=== PATIENT | male | born 1950 | race Two or more races ===

== ENCOUNTER 2016-11-11 17:36 | Inpatient (IN) | payer MEDICARE ==
[~2016-11-11] VITALS: Ht 162.6 cm; Wt 65.1 kg
[2016-11-11 18:07] VITALS: BP 136/94
[2016-11-11] MEDS ORDERED: MAG HYDROX/AL HYDROX/SIMETH 30 ML ORAL.SUSP PO PRN (18:30)
[2016-11-11] MEDS ORDERED: MAGNESIUM HYDROXIDE 2,400 MG/30 ML ORAL.SUSP. PO PRN (18:30)
[2016-11-11] MEDS ORDERED: ALBUTEROL SULFATE 8GM INHALER. IH PRN (18:45)
[2016-11-11] MEDS ORDERED: IPRA12.9 IH (18:55)
[2016-11-11] MEDS ORDERED: LACT10SO PO (18:55)
[2016-11-11] MEDS ORDERED: [UNRECOGNIZED DRUG - CODE] PO (18:55)
[2016-11-11] MEDS ORDERED: FOLI1TAB16 PO (18:55)
[2016-11-11] MEDS ORDERED: THIA100T8 PO (18:55)
[2016-11-11] MEDS ORDERED: ENAL20TA4 PO (18:55)
[2016-11-11] MEDS ORDERED: AMLO10TA4 PO (18:55)
[2016-11-11] MEDS ORDERED: CARV12.5 PO (18:55)
[2016-11-11] MEDS ORDERED: MULT-503 PO (18:55)
[2016-11-11] MEDS ORDERED: PANT40TA5 PO (18:55)
[2016-11-11] MEDS ORDERED: ALBU18HF IH ×2 (18:55)
[2016-11-11] MEDS ORDERED: DIVA125C PO (19:15)
[2016-11-11] MEDS ORDERED: DIVA500T17 PO (19:15)
[2016-11-11] MEDS ORDERED: LORA2TAB PO (19:29)
[2016-11-11] MEDS ORDERED: HALO5TAB PO (19:29)
[2016-11-11] MEDS ORDERED: TRAZ-90 PO (19:29)
--- NOTE | 2016-11-11 19:44 | PDOC ---
Exam Ashvin Demential Exam: Ashvin Note: Please also refer to the separate dictated note~for this date of service dictated separately.~Patient seen individually. Discussed the patient with Nursing staff reviewed the chart.~Reviewed interim history and current functioning. Reviewed vital signs,~Labs/ Radiology~and current medications noted below. Continue current treatment with the changes noted in the dictated addendum note Assessment: Vital Signs: Vital Signs Date Time Temp Pulse Resp B/P (MAP) Pulse Ox O2 Delivery O2 Flow Rate FiO2 11/11/16 18:07 98.4 94 22 136/94 (108) 96 Current Medications: Meds: Current Medications Acetaminophen (Tylenol) 650 mg PRN Q6HRS PRN PO PAIN / TEMP; Start 11/11/16 at 18:30 Multi-Ingredient Ointment (Analgesic [place]) 1 melani PRN QID PRN TP MUSCLE PAIN; Start 11/11/16 at 18:30 Al Hydroxide/Mg Hydroxide (Mylanta Plus Xs) 15 ml PRN AFTMEALHC PRN PO DYSPEPSIA; Start 11/11/16 at 18:30 Magnesium Hydroxide (Milk Of Magnesia) 2,400 mg PRN QHS PRN PO CONSTIPATION; Start 11/11/16 at 18:30 Albuterol Sulfate (Ventolin Hfa) 2 puff PRN Q4HRS PRN IH FOR ASTHMA; Start 01/18 at 18:45; Status UNV Albuterol Sulfate (Ventolin Hfa) 2 puff Q4HRS IH ; Start 11/11/16 at 20:00; Status UNV Amlodipine Besylate (Norvasc) 10 mg DAILY PO ; Start 11/12/16 at 09:00 Carvedilol (Coreg) 12.5 mg BIDWMEALS PO ; Start 11/12/16 at 08:00 Folic Acid (Folic Acid) 1 mg DAILY PO ; Start 11/12/16 at 09:00 Ipratropium [place] (Atrovent Hfa) 2 puff QID IH ; Start 11/11/16 at 21:00; Status UNV Pantoprazole Sodium (Protonix) 40 mg BID PO ; Start 11/11/16 at 21:00 Thiamine HCl (Vitamin B-1) 100 mg DAILY PO ; Start 11/12/16 at 09:00 Lisinopril (Prinivil) 20 mg BID PO ; Start 11/11/16 at 21:00 Guaifenesin (Mucinex Er) 1,200 mg Q12HR PO ; Start 11/11/16 at 21:00 Lactulose 20 gm BID PO ; Start 11/11/16 at 21:00 Multivitamins/ Calcium (Thera-M Plus) 1 tab DAILY PO ; Start 11/12/16 at 09:00 Divalproex Sodium (Depakote Sprinkles) 500 mg BID PO ; Start 11/11/16 at 21:00; Status UNV Divalproex Sodium (Depakote Er) 1,000 mg DAILY PO ; Start 11/12/16 at 09:00; Status UNV Ipratropium [place] (Atrovent) 0.5 mg RTQID NEB ; Start 11/11/16 at 20:00; Status UNV Albuterol Sulfate (Ventolin) 2.5 mg PRN Q4HRS PRN NEB SHORTNESS OF BREATH; Start 11/11/16 at 19:45; Status UNV Active Scripts Active Reported Trazodone Hcl 100 Mg Tablet 1 Tab PO QHS Lorazepam 2 Mg Tablet 1 Tab PO PRN Q4HRS PRN Haloperidol 5 Mg Tablet 1 Tab PO PRN Q4HRS PRN Depakote Sprinkle (Divalproex Sodium) 125 Mg Cap.sprink 500 Mg PO BID Divalproex Sodium Er (Divalproex Sodium) 500 Mg Tab.er.24h 1,000 Mg PO DAILY Thiamine Hcl 100 Mg Tablet 100 Mg PO DAILY Folic Acid 1 Mg Tablet 1 Tab PO DAILY Thera-M (Multivits, W-Fe,Other Min) 1 Each Tablet 1 Each PO DAILY Pantoprazole Sodium 40 Mg Tablet.dr 1 Tab PO BID Lactulose 10 Gm/15 Ml Solution 30 Ml PO BID Atrovent Hfa (Ipratropium [place]) 12.9 Gm Hfa.aer.ad 2 Puff IH QID Guaifenesin 1,200 Mg Tab.er.12h 1,200 Mg PO Q12HR Vasotec (Enalapril Maleate) 20 Mg Tablet 10 Mg PO BID Coreg (Carvedilol) 12.5 Mg Tablet 12.5 Mg PO BIDWMEALS Norvasc (Amlodipine Besylate) 10 Mg Tablet 1 Tab PO DAILY Ventolin Hfa Inhaler (Albuterol Sulfate) 18 Gm Hfa.aer.ad 2 Puff IH PRN Q4HRS PRN Ventolin Hfa Inhaler (Albuterol Sulfate) 18 Gm Hfa.aer.ad 2 Puff IH Q4HRS CHALINO GUTIERRES MD Nov 11, 2016 19:44
[2016-11-11] MEDS ORDERED: ALBUTEROL SULFATE 2.5 MG/3 ML NEBU. NEB PRN (19:45)
[2016-11-11] MEDS ORDERED: ALBUTEROL SULFATE 8GM INHALER. IH SCH (20:00)
[2016-11-11] MEDS: LACTULOSE 20 GM/30 ML SOLUTION. PO SCH (20:51)
[2016-11-11] MEDS: PANTOPRAZOLE 40 MG TABLET. PO SCH (20:52)
[2016-11-11] MEDS: LISINOPRIL 20 MG TABLET PO SCH (20:52)
[2016-11-11] MEDS: DIVALPROEX 125 MG CAP.SPRINK PO SCH (20:52)
[2016-11-11] MEDS ORDERED: IPRATROPIUM BROMIDE 17MCG/PUFF 12.9GM INHALER. IH SCH (21:00)
[2016-11-11] MEDS: IPRATROPIUM BROMIDE 0.5 MG/2.5 ML NEBU. NEB SCH (21:01)
--- NOTE | 2016-11-11 22:21 | HP ---
ADMIT DATE: 11/11/2016 PSYCHIATRIC ADMISSION HISTORY/EVALUATION IDENTIFYING DATA: The patient is a 65-year-old male referred to us from [facility] in [place], [place] by Dr. Aleman on account of acute mental status changes. Reportedly, the patient was living at home with his , has a past history of heavy alcohol abuse, denies recent alcohol abuse. He has had a sudden onset of confusion, questionable seizures, has been impulsive. states his baseline is alert, oriented x 4. He denies any recent alcohol abuse. CHIEF COMPLAINT: "No I don't know when I came here. I live in [place]. No, I don't know the year". HISTORY OF PRESENT ILLNESS: The patient was anxious, restless, oriented to himself as I met with him in his room. He was admitting to feeling cold and I brought some extra covers and covered him. He was appreciative of this. Reportedly, the patient has a past history of alcohol abuse. He has been residing at home with his . Denies using alcohol recently. Reportedly, recently he has had change in mental status with marked confusion and has been at [facility] in [place] as a consequence of this. Workup at [facility] was negative to account for his change in mental status. No clear history of bipolar disorder, suicidal or homicidal ideation. CODE STATUS: Full. ALLERGIES: LORATADINE. PAST PSYCHIATRIC HISTORY: As above, positive for history of alcohol abuse, dependence, withdrawal. PAST MEDICAL HISTORY: Positive for hypertension, folic acid deficiency, COPD, chronic constipation, GERD, hyperlipidemia, arthritis. FAMILY HISTORY: Noncontributory. SOCIAL HISTORY: Alcohol abuse history noted above. No physical, sexual or elder abuse history is noted. He is not known to be a perpetrator. CURRENT PSYCHOTROPICS: MRAD was reviewed. The patient is on Antabuse for his alcohol abuse, Ativan, Zoloft, trazodone, Depakote. MENTAL STATUS EXAM: The patient was seen in his room the evening of 11/11/2016. He is oriented to himself, unaware of where he was, how long he had been here and knew that he resides in [place]. 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 Minimizes his alcohol abuse. Speech was somewhat slurred, abstraction fair, computation impaired, language function intact, attention span short. Mood and affect somewhat labile, anxious. LABORATORY DATA: Reviewed. REVIEW OF SYSTEMS: Ambulation impaired. No CV, , pulmonary, eye, ENT system symptoms on review. 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 Rest of diagnoses as above. PLAN: Admit to the Geropsychiatry unit at [facility]. I will see the patient daily individually from a psychiatric standpoint. Medical followup requested by Dr. Joe/Dr. Kirkland. Continue the patient on current psychotropics. Check valproic acid level, adjust psychotropics for his baseline assessment. If CT head has not been done, we will have this completed. MAN Ruth GUTIERRES MD DR: JACK/eyal JOB#: [id number] / [id number]
--- NOTE | 2016-11-12 02:26 | ACF ---
Admission Criteria Forms MENTAL STATUS CHANGE Clinical Indications for Inpatient Care (Place 'X' for any and all applicable criteria): Ongoing inpatient care may be needed for 1 or more of the following(1)(2)(3)(5)( 6): [X]I. Suspected serious etiology (eg, medical disorder, EMBROIDERER HAND event) of altered mental status [ ]II. Danger to self or others not manageable at lower level of care [ ]III. Grave disability (eg, inability to perform self care necessary at lower level of care) [ ]IV. Agitation or inappropriate behavior interfering with care for primary condition (eg, attempting to discontinue lines or drains prematurely, unable to cooperate with respiratory care) [ ]V. Delirium [A] [D][E] as described by 1 or more of the following(26): [ ]a) Delirium due to alcohol or sedative [F] withdrawal [ ]b) Delirium of uncertain etiology that has not responded to appropriate empiric treatment [ ]c) Delirium that prevents performance of a life-sustaining function (eg, feeding or hydrating oneself) [ ]. General contraindications and/or Inappropriate clinical situations for Observational Care in patients with Mental Status Change, when ANY ONE of the following is required: [ ]a) Prediction of prolongation of LOS based on ANY ONE of the following may be considered as a contraindication for observational care 2, 3, 4, 5, 6, 7, 8, 9, 10, 11 [ ]i) Age > 65 yrs. [ ]ii) Patient arriving by ambulance [ ]iii) Patient with high acuity [ ]iv) Patient requiring vital sign monitoring [ ]v) Patient on IV medication [ ]b) Systolic blood pressures greater than or equal to 180mmHg 3, 12 [ ]c) Patient with altered mental status including delirium and other alteration of consciousness, (3) [ ]d) Patient whose discharge disposition will be to a long term home or rehabilitation home should not be managed in Emergency Department Observation Unit. CMS rule requires 3 days hospital stay before such placement.3,13 [ ]e) Patient with failure to thrive due to broad array of etiologies 3,16,17 [ ]f) Inability to ambulate 3,14 Extended stay beyond goal length of stay for the primary condition may be needed until ALL of the following are present(3)(5): [ ]a) Underlying medical etiology of mental status change is absent, or has been established and adequately treated [ ]b) Danger to self or others is absent or manageable at lower level of care. [ ]c) Behavior crisis management, including physical or chemical restraints, is not required or available at lower level of car [ ]d) Substance or alcohol withdrawal is absent or manageable at lower level of care. [ ]e) Behavioral symptoms (eg, agitation, somnolence, inappropriate behavior) are absent, or are manageable at lower level of care. The original [email or web address] content created by [email or web address] has been revised. The portions of the content which have been revised are identified through the use of italic text or in bold, and [facility] has neither reviewed nor approved the modified material. All other unmodified content is copyright [email or web address]. Please see references footnoted in the original [email or web address] edition 2016 Admission Criteria Met?: Yes ROBINSON ZHU Nov 12, 2016 02:26
[2016-11-12 05:42] VITALS: BP 123/76
[2016-11-12] MEDS: IPRATROPIUM BROMIDE 0.5 MG/2.5 ML NEBU. NEB SCH ×4 (05:49→21:12)
[2016-11-12 07:26] LABS: BASO % 0 % (0-3); EOS # 0.5 x10^3/uL (0.0-0.7); EOS % 4 % (0-3); HEMATOCRIT 40.6 % (39.0-53.0); HEMOGLOBIN 13.7 g/dL (13.0-17.5); LYMPH # 1.7 x10^3/uL (1.0-4.8); LYMPH % 13 % (24-48); MEAN CORPUSCULAR HEMOGLOBIN 31 pg (25-35); MEAN CORPUSCULAR HGB CONC 34 g/dL (31-37); MEAN CORPUSCULAR VOLUME 90 fL (79-100); MONO # 1.2 x10^3/uL (0.0-1.1); MONO % 9 % (0-9); NEUT # 9.7 x10^3uL (1.8-7.7); NEUT % 74 % (31-73); PLATELET COUNT 186 x10^3/uL (140-400); RED BLOOD COUNT 4.49 x10^6/uL (4.30-5.70); RED CELL DISTRIBUTION WIDTH 15.1 % (11.5-14.5)
[2016-11-12 07:42] LABS: ALBUMIN 3.2 g/dL (3.4-5.0); ALBUMIN/GLOBULIN RATIO 0.9 (1.0-1.7); ALK PHOS 46 U/L (46-116); ALT (SGPT) 15 U/L (16-63); ANION GAP 5 (6-14); AST (SGOT) 10 U/L (15-37); BLOOD UREA NITROGEN 13 mg/dL (8-26); BUN/CREATININE RATIO 14 (6-20); CALCIUM 9.6 mg/dL (8.5-10.1); CARBON DIOXIDE 30 mmol/L (21-32); CHLORIDE 110 mmol/L (98-107); CREATININE 0.9 mg/dL (0.7-1.3); GFR 84.7; GLUCOSE 100 mg/dL (70-99); MAGNESIUM 2.2 mg/dL (1.8-2.4); POTASSIUM 3.4 mmol/L (3.5-5.1); SODIUM 145 mmol/L (136-145); TOTAL BILIRUBIN 0.3 mg/dL (0.2-1.0); TOTAL PROTEIN 6.7 g/dL (6.4-8.2)
[2016-11-12 07:50] LABS: VAL ACID 91 mcg/mL (50-100)
[2016-11-12] MEDS: LACTULOSE 20 GM/30 ML SOLUTION. PO SCH ×2 (08:00→19:39)
[2016-11-12] MEDS: PANTOPRAZOLE 40 MG TABLET. PO SCH ×2 (08:00→19:40)
[2016-11-12] MEDS: DIVALPROEX 125 MG CAP.SPRINK PO SCH ×2 (08:01→19:40)
[2016-11-12] MEDS: LISINOPRIL 20 MG TABLET PO SCH ×2 (08:01→19:40)
[2016-11-12] MEDS: FOLIC ACID 1 MG TABLET PO SCH (08:05)
[2016-11-12] MEDS: CARVEDILOL 12.5 MG TABLET PO SCH ×2 (08:05→17:00)
[2016-11-12] MEDS: DIVALPROEX ER 500 MG TAB.ER.24H PO SCH (08:05)
[2016-11-12] MEDS: THIAMINE 100 MG TABLET. PO SCH (08:05)
[2016-11-12] MEDS: amLODIPine BESYLATE 10 MG TABLET PO SCH (08:06)
[2016-11-12] MEDS: MULTIVITAMIN with MINERAL TABLET. PO SCH (08:10)
--- NOTE | 2016-11-12 13:51 | HP ---
ADMIT DATE: 11/11/2016 MEDICAL HISTORY AND PHYSICAL REASON FOR ADMISSION TO [facility]: This is a 65-year-old male with longstanding alcoholism, who resides at [facility] with his in [place], [place]. We were called from [facility] in [place] for admission because of sudden onset of confusion, questionable seizures, impulsive. states his baseline is alert and oriented x 4. PAST MEDICAL HISTORY: Often on issues with alcohol, major depressive disorder, hypertension, hyperlipidemia, GERD, arthritis, anxiety. PAST SURGICAL HISTORY: Appendectomy, tonsillectomy. ALLERGIES: LORATADINE. MEDICATIONS: Were reviewed. He had some changes in his Depakote, which had been increased. SOCIAL HISTORY: Marital status: He is , his is a drug and alcohol counselor. He has a longstanding problem with alcoholism. The patient did not really state when his last drink was . SMOKING HISTORY: He states I smoke an occasional cigarette. REVIEW OF SYSTEMS: The patient just would not cooperate and he was very restless. HOME MEDICATIONS: Chart reviewed from [facility] from admission on 10/29/2016 for altered mental status. The patient was seen. PHYSICAL EXAMINATION: VITAL SIGNS: His blood pressure is 123/76, respirations 20, pulse 96, temperature 98, pulse ox 96% on room air. Height 74 inches, weight 140.38 pounds, unknown. GENERAL: Debilitated male, looks older than his stated age. His general appearance is unkept. He is restless. He is constantly moving. HEENT: His hearing is normal. His eyes were clear. His nose was patent. His throat was clear. His tongue was midline without fasciculations. NECK: Supple, without adenopathy. LUNGS: Clear to auscultation. CARDIOVASCULAR: Regular rhythm and rate. ABDOMEN: Soft, nontender. EXTREMITIES: Without edema. Reflexes 2+/4. MUSCULOSKELETAL: The patient had a hard time doing bixpiy-ar-kehl. He would put one finger to my finger and touched his nose with the other finger and could not follow directions. He could do rapid alternating movement. Reflexes actually in the lower extremity, probably 3+/4. Other cranial nerves intact. There is no asterixis and no tremor. LABORATORY DATA: White blood cell count slightly elevated at 13, otherwise negative. Chemistry: Potassium is 3.4, chloride 110. Liver function tests are actually little bit low albumin is 3.2. Valproic acid is 91. CT of the head from [facility] in [place] shows no evidence of mass effect, age-related volume loss, chronic microvascular ischemic disease, although other labs are pending. ASSESSMENT: 1. A 65-year-old with confusion, agitation, and restlessness 2. Longstanding alcoholism. 3. Major depressive disorder. 4. Hypertension. 5. White matter disease. 6. Age-related volume loss. 7. Gastroesophageal reflux disease. 8. Weight loss. PLAN: Follow along with alcohol withdrawal. Observe for alcohol withdrawal and await his other studies. AGUSTIN LEO DO DR: MATI/eyal JOB#: [id number] / [id number]
[2016-11-12 14:11] LABS: THYROID STIM HORMONE (TSH) 1.735 uIU/mL (0.358-3.740)
[2016-11-12 16:18] VITALS: BP 147/79
[2016-11-12 17:09] LABS: T3 TOTAL 119 ng/dL (71-180)
--- NOTE | 2016-11-12 19:53 | PDOC ---
Exam Ashvin Demential Exam: Ashvin Note: Please also refer to the separate dictated note~for this date of service dictated separately.~Patient seen individually. Discussed the patient with Nursing staff reviewed the chart.~Reviewed interim history and current functioning. Reviewed vital signs,~Labs/ Radiology~and current medications noted below. Continue current treatment with the changes noted in the dictated addendum note Assessment: Vital Signs: Vital Signs Date Time Temp Pulse Resp B/P (MAP) Pulse Ox O2 Delivery O2 Flow Rate FiO2 11/12/16 19:40 94 147/79 11/12/16 16:31 95 Room Air 11/12/16 16:18 98.2 20 I&O Intake and Output 11/12/16 07:00 Intake Total 0 ml Balance 0 ml Intake Oral 0 ml Labs: Laboratory Tests Test 11/12/16 06:40 White Blood Count 13.0 x10^3/uL (4.0-11.0) H Red Blood Count 4.49 x10^6/uL (4.30-5.70) Hemoglobin 13.7 g/dL (13.0-17.5) Hematocrit 40.6 % (39.0-53.0) Mean Corpuscular Volume 90 fL (79-100) Mean Corpuscular Hemoglobin 31 pg (25-35) Mean Corpuscular Hemoglobin Concent 34 g/dL (31-37) Red Cell Distribution Width 15.1 % (11.5-14.5) H Platelet Count 186 x10^3/uL (140-400) Neutrophils (%) (Auto) 74 % (31-73) H Lymphocytes (%) (Auto) 13 % (24-48) L Monocytes (%) (Auto) 9 % (0-9) Eosinophils (%) (Auto) 4 % (0-3) H Basophils (%) (Auto) 0 % (0-3) Neutrophils # (Auto) 9.7 x10^3uL (1.8-7.7) H Lymphocytes # (Auto) 1.7 x10^3/uL (1.0-4.8) Monocytes # (Auto) 1.2 x10^3/uL (0.0-1.1) H Eosinophils # (Auto) 0.5 x10^3/uL (0.0-0.7) Basophils # (Auto) 0.0 x10^3/uL (0.0-0.2) Sodium Level 145 mmol/L (136-145) Potassium Level 3.4 mmol/L (3.5-5.1) L Chloride Level 110 mmol/L (98-107) H Carbon Dioxide Level 30 mmol/L (21-32) Anion Gap 5 (6-14) L Blood Urea Nitrogen 13 mg/dL (8-26) Creatinine 0.9 mg/dL (0.7-1.3) Estimated GFR (Cockcroft-Gault) 84.7 BUN/Creatinine Ratio 14 (6-20) Glucose Level 100 mg/dL (70-99) H Calcium Level 9.6 mg/dL (8.5-10.1) Magnesium Level 2.2 mg/dL (1.8-2.4) Iron Level 24 ug/dL (65-175) L Total Iron Binding Capacity 209 ug/dL (250-450) L Iron Saturation 11 % (15-34) L Total Bilirubin 0.3 mg/dL (0.2-1.0) Aspartate Amino Transferase (AST) 10 U/L (15-37) L Alanine Aminotransferase (ALT) 15 U/L (16-63) L Alkaline Phosphatase 46 U/L (46-116) Total Protein 6.7 g/dL (6.4-8.2) Albumin 3.2 g/dL (3.4-5.0) L Albumin/Globulin Ratio 0.9 (1.0-1.7) L Triglycerides Level 107 mg/dL (0-150) Cholesterol Level 152 mg/dL (0-200) LDL Cholesterol, Calculated 92 mg/dL (0-100) VLDL Cholesterol, Calculated 21 mg/dL (0-40) Non-HDL Cholesterol Calculated 113 mg/dL (0-129) HDL Cholesterol 39 mg/dL (40-60) L Cholesterol/HDL Ratio 3.0 Vitamin B12 Level 494 pg/mL (247-911) 25-Hydroxy Vitamin D Total Pending Thyroid Stimulating Hormone (TSH) 1.735 uIU/mL (0.358-3.740) Thyroxine (T4) 7.0 ug/dL (4.5-12.0) Total Triiodothyronine (TT3) 119 ng/dL (71-180) Valproic Acid Level 91 mcg/mL (50-100) Valproic Acid Last Dose Date 11/11/2016 Valproic Acid Last Dose Time 2100 RPR Titer Additional Testing Pending Current Medications: Meds: Current Medications Acetaminophen (Tylenol) 650 mg PRN Q6HRS PRN PO PAIN / TEMP; Start 11/11/16 at 18:30 Multi-Ingredient Ointment (Analgesic [place]) 1 melani PRN QID PRN TP MUSCLE PAIN; Start 11/11/16 at 18:30 Al Hydroxide/Mg Hydroxide (Mylanta Plus Xs) 15 ml PRN AFTMEALHC PRN PO DYSPEPSIA; Start 11/11/16 at 18:30 Magnesium Hydroxide (Milk Of Magnesia) 2,400 mg PRN QHS PRN PO CONSTIPATION; Start 11/11/16 at 18:30 Albuterol Sulfate (Ventolin Hfa) 2 puff PRN Q4HRS PRN IH FOR ASTHMA; Start 01/18 at 18:45; Stop 11/11/16 at 19:52; Status DC Albuterol Sulfate (Ventolin Hfa) 2 puff Q4HRS IH ; Start 11/11/16 at 20:00; Stop 11/11/16 at 20:00; Status DC Amlodipine Besylate (Norvasc) 10 mg DAILY PO Last administered on 11/12/16 08: 06; Start 11/12/16 at 09:00 Carvedilol (Coreg) 12.5 mg BIDWMEALS PO Last administered on 11/12/16 17:00; Start 11/12/16 at 08:00 Folic Acid (Folic Acid) 1 mg DAILY PO Last administered on 11/12/16 08:05; Start 11/12/16 at 09:00 Ipratropium [place] (Atrovent Hfa) 2 puff QID IH ; Start 11/11/16 at 21:00; Stop 11/11/16 at 21:00; Status DC Pantoprazole Sodium (Protonix) 40 mg BID PO Last administered on 11/12/16 19: 40; Start 11/11/16 at 21:00 Thiamine HCl (Vitamin B-1) 100 mg DAILY PO Last administered on 11/12/16 08:05 ; Start 11/12/16 at 09:00 Lisinopril (Prinivil) 20 mg BID PO Last administered on 11/12/16 19:40; Start 11/11/16 at 21:00 Guaifenesin (Mucinex Er) 1,200 mg Q12HR PO Last administered on 11/12/16 19:39 ; Start 11/11/16 at 21:00 Lactulose 20 gm BID PO Last administered on 11/12/16 19:39; Start 11/11/16 at 21:00 Multivitamins/ Calcium (Thera-M Plus) 1 tab DAILY PO Last administered on 08:10; Start 11/12/16 at 09:00 Divalproex Sodium (Depakote Sprinkles) 500 mg BID PO Last administered on 19:40; Start 11/11/16 at 21:00 Divalproex Sodium (Depakote Er) 1,000 mg DAILY PO Last administered on 08:05; Start 11/12/16 at 09:00 Ipratropium [place] (Atrovent) 0.5 mg RTQID NEB Last administered on 11/12/16 16:31; Start 11/11/16 at 20:00 Albuterol Sulfate (Ventolin) 2.5 mg PRN Q4HRS PRN NEB SHORTNESS OF BREATH; Start 11/11/16 at 19:45 Quetiapine Fumarate (SEROquel) 12.5 mg DAILY PO ; Start 11/13/16 at 09:00 Active Scripts Active Reported Trazodone Hcl 100 Mg Tablet 1 Tab PO QHS Lorazepam 2 Mg Tablet 1 Tab PO PRN Q4HRS PRN Haloperidol 5 Mg Tablet 1 Tab PO PRN Q4HRS PRN Depakote Sprinkle (Divalproex Sodium) 125 Mg Cap.sprink 500 Mg PO BID Divalproex Sodium Er (Divalproex Sodium) 500 Mg Tab.er.24h 1,000 Mg PO DAILY Thiamine Hcl 100 Mg Tablet 100 Mg PO DAILY Folic Acid 1 Mg Tablet 1 Tab PO DAILY Thera-M (Multivits, W,Other Min) 1 Each Tablet 1 Each PO DAILY Pantoprazole Sodium 40 Mg Tablet.dr 1 Tab PO BID Lactulose 10 Gm/15 Ml Solution 30 Ml PO BID Atrovent Hfa (Ipratropium [place]) 12.9 Gm Hfa.aer.ad 2 Puff IH QID Guaifenesin 1,200 Mg Tab.er.12h 1,200 Mg PO Q12HR Vasotec (Enalapril Maleate) 20 Mg Tablet 10 Mg PO BID Coreg (Carvedilol) 12.5 Mg Tablet 12.5 Mg PO BIDWMEALS Norvasc (Amlodipine Besylate) 10 Mg Tablet 1 Tab PO DAILY Ventolin Hfa Inhaler (Albuterol Sulfate) 18 Gm Hfa.aer.ad 2 Puff IH PRN Q4HRS PRN Ventolin Hfa Inhaler (Albuterol Sulfate) 18 Gm Hfa.aer.ad 2 Puff IH Q4HRS Diagnosis: Problems: (1) Anxiety disorder (2) Dementia associated with alcoholism with behavioral disturbance (3) Dementia, vascular, with delirium (4) Dementia, vascular, with delusions (5) Dementia, vascular, with depression (6) Impulse control disorder CHALINO GUTIERRES MD Nov 12, 2016 19:53
[2016-11-13 03:21] LABS: HEMOGLOBIN A1C 4.6 % (4.8-5.6)
[2016-11-13 04:41] LABS: BILIRUBIN,URINE NEG (NEG); CLARITY,URINE CLEAR; COLOR,URINE YELLOW; GLUCOSE,URINE NEG (NEG); UROBILINOGEN,URINE 0.2 mg/dL (0.2 mg/dL)
[2016-11-13 04:42] LABS: BACTERIA,URINE FEW /HPF (0-FEW); NITRITE,URINE NEG (NEG); SQUAMOUS EPITHELIAL CELL,UR OCC /LPF; WBC,URINE 0 /HPF (0-4)
[2016-11-13 05:34] VITALS: BP 156/97
[2016-11-13] MEDS: IPRATROPIUM BROMIDE 0.5 MG/2.5 ML NEBU. NEB SCH ×4 (05:36→20:34)
[2016-11-13] MEDS: LACTULOSE 20 GM/30 ML SOLUTION. PO SCH ×2 (07:40→20:05)
[2016-11-13] MEDS: LISINOPRIL 20 MG TABLET PO SCH ×2 (07:41→20:06)
[2016-11-13] MEDS: DIVALPROEX 125 MG CAP.SPRINK PO SCH ×2 (07:41→20:06)
[2016-11-13] MEDS: PANTOPRAZOLE 40 MG TABLET. PO SCH ×2 (07:41→20:07)
[2016-11-13] MEDS: MULTIVITAMIN with MINERAL TABLET. PO SCH (07:41)
[2016-11-13] MEDS: DIVALPROEX ER 500 MG TAB.ER.24H PO SCH (07:42)
[2016-11-13] MEDS: THIAMINE 100 MG TABLET. PO SCH (07:42)
[2016-11-13] MEDS: CARVEDILOL 12.5 MG TABLET PO SCH ×2 (07:42→17:00)
[2016-11-13] MEDS: amLODIPine BESYLATE 10 MG TABLET PO SCH (07:42)
[2016-11-13] MEDS: FOLIC ACID 1 MG TABLET PO SCH (07:42)
[2016-11-13] MEDS: QUEtiapine 25 MG TABLET. PO SCH (07:59)
[2016-11-13 16:23] VITALS: BP 110/75
[2016-11-13] MEDS: ACETAMINOPHEN 325 MG TABLET PO PRN (17:24)
[2016-11-13] MEDS ORDERED: POTASSIUM CHLORIDE 20 MEQ TABLET.ER. PO ONE (20:00)
[2016-11-13] MEDS: traZODone 100 MG TABLET. PO SCH (20:05)
--- NOTE | 2016-11-13 20:21 | PN ---
DATE: 11/12/2016 PSYCHIATRIC PROGRESS NOTE This late entry of date of service 11/12/2016 covers elements not covered in my initial note of 11/12/2016. SUBJECTIVE: The patient seen individually evening of 11/12/2016 for this assessment. He has been ambulating better, seems little less confused than the night previously when I saw him. I met with him in the evening of 11/12/2016. He slid down the wall, dropping himself to the floor, no injuries noted. His has been calling very frequently per nursing staff to check on his progress and has called the nursing staff about 5 times during the day on 11/12/2016, per nursing report. She seems quite concerned about his progress, somehow which is understandable. The patient was, however, cursing at his on the telephone. Given the fact that he has had a significant change in his mental status, we will have a Neurology consult with Dr. Sánchez as well. Valproic acid level is 91. REVIEW OF SYSTEMS: Ambulation impaired. No CV, , pulmonary, eye system symptoms on review. MENTAL STATUS EXAM: Oriented to himself and situation. Speech has some latency, somewhat paranoid, suspicious, anxious. Insight limited, judgment marginal. Short term memory is impaired. No active suicidal or homicidal ideation. LABORATORY DATA: Reviewed. IMPRESSION: Unchanged from initial note. PLAN: Continue Depakote at current dosage, start Seroquel 12.5 mg at 9 a.m. starting 11/13/2016 as a mood stabilizer or atypical antipsychotic. Adjust further as clinically indicated. CHALINO GUTIERRES MD DR: JACK/eyal JOB#: [id number] / [id number]
[2016-11-13] MEDS ORDERED: traZODone 100 MG TABLET. PO SCH (21:00)
[2016-11-13] MEDS ORDERED: MIRTAZAPINE 7.5 MG TABLET. PO SCH (21:00)
--- NOTE | 2016-11-13 23:09 | PDOC ---
Exam Ashvin Demential Exam: Ashvin Note: Please also refer to the separate dictated note~for this date of service dictated separately.~Patient seen individually. Discussed the patient with Nursing staff reviewed the chart.~Reviewed interim history and current functioning. Reviewed vital signs,~Labs/ Radiology~and current medications noted below. Continue current treatment with the changes noted in the dictated addendum note Assessment: Vital Signs: Vital Signs Date Time Temp Pulse Resp B/P (MAP) Pulse Ox O2 Delivery O2 Flow Rate FiO2 11/13/16 20:36 98 Room Air 11/13/16 20:06 93 110/75 11/13/16 16:23 98.1 18 I&O Intake and Output 11/13/16 07:00 Intake Total 960 ml Balance 960 ml Intake Oral 960 ml # Bowel Movements 1 Labs: Laboratory Tests Test 11/13/16 03:55 Urine Collection Type Clean catch Urine Color Yellow Urine Clarity Clear Urine pH 6.5 Urine Specific [place] 1.020 Urine Protein Neg (NEG-TRACE) Urine Glucose (UA) Neg mg/dL (NEG) Urine Ketones (Stick) 15 mg/dL (NEG) Urine Blood Trace (NEG) Urine Nitrite Neg (NEG) Urine Bilirubin Neg (NEG) Urine Urobilinogen Dipstick 0.2 mg/dL (0.2 mg/dL) Urine Leukocyte Esterase Neg (NEG) Urine RBC 1-2 /HPF (0-2) Urine WBC 0 /HPF (0-4) Urine Squamous Epithelial Cells Occ /LPF Urine Bacteria Few /HPF (0-FEW) Urine Mucus Slight /LPF Current Medications: Meds: Current Medications Acetaminophen (Tylenol) 650 mg PRN Q6HRS PRN PO PAIN / TEMP Last administered on 11/13/16t 17:24; Start 11/11/16 at 18:30 Multi-Ingredient Ointment (Analgesic [place]) 1 melani PRN QID PRN TP MUSCLE PAIN; Start 11/11/16 at 18:30 Al Hydroxide/Mg Hydroxide (Mylanta Plus Xs) 15 ml PRN AFTMEALHC PRN PO DYSPEPSIA; Start 11/11/16 at 18:30 Magnesium Hydroxide (Milk Of Magnesia) 2,400 mg PRN QHS PRN PO CONSTIPATION; Start 11/11/16 at 18:30 Albuterol Sulfate (Ventolin Hfa) 2 puff PRN Q4HRS PRN IH FOR ASTHMA; Start 01/18 at 18:45; Stop 11/11/16 at 19:52; Status DC Albuterol Sulfate (Ventolin Hfa) 2 puff Q4HRS IH ; Start 11/11/16 at 20:00; Stop 11/11/16 at 20:00; Status DC Amlodipine Besylate (Norvasc) 10 mg DAILY PO Last administered on 11/13/16 07: 42; Start 11/12/16 at 09:00 Carvedilol (Coreg) 12.5 mg BIDWMEALS PO Last administered on 11/13/16 17:00; Start 11/12/16 at 08:00 Folic Acid (Folic Acid) 1 mg DAILY PO Last administered on 11/13/16 07:42; Start 11/12/16 at 09:00 Ipratropium [place] (Atrovent Hfa) 2 puff QID IH ; Start 11/11/16 at 21:00; Stop 11/11/16 at 21:00; Status DC Pantoprazole Sodium (Protonix) 40 mg BID PO Last administered on 11/13/16 20: 07; Start 11/11/16 at 21:00 Thiamine HCl (Vitamin B-1) 100 mg DAILY PO Last administered on 11/13/16 07:42 ; Start 11/12/16 at 09:00 Lisinopril (Prinivil) 20 mg BID PO Last administered on 11/13/16 20:06; Start 11/11/16 at 21:00 Guaifenesin (Mucinex Er) 1,200 mg Q12HR PO Last administered on 11/13/16 20:07 ; Start 11/11/16 at 21:00 Lactulose 20 gm BID PO Last administered on 11/13/16 20:05; Start 11/11/16 at 21:00 Multivitamins/ Calcium (Thera-M Plus) 1 tab DAILY PO Last administered on 07:41; Start 11/12/16 at 09:00 Divalproex Sodium (Depakote Sprinkles) 500 mg BID PO Last administered on 20:06; Start 11/11/16 at 21:00 Divalproex Sodium (Depakote Er) 1,000 mg DAILY PO Last administered on 07:42; Start 11/12/16 at 09:00 Ipratropium [place] (Atrovent) 0.5 mg RTQID NEB Last administered on 11/13/16 20:34; Start 11/11/16 at 20:00 Albuterol Sulfate (Ventolin) 2.5 mg PRN Q4HRS PRN NEB SHORTNESS OF BREATH; Start 11/11/16 at 19:45 Quetiapine Fumarate (SEROquel) 12.5 mg DAILY PO Last administered on 11/13/16 07:59; Start 11/13/16 at 09:00 Trazodone HCl (Desyrel) 100 mg QHS PO ; Start 11/13/16 at 21:00; Stop 11/13/16 at 21:00; Status DC Olanzapine (ZyPREXA ZYDIS) 2.5 mg PRN Q2HR PRN PO PSYCHOSIS Last administered on 11/13/16 20:05; Start 11/13/16 at 12:45 Mirtazapine (Remeron) 7.5 mg QHS PO ; Start 11/13/16 at 21:00; Stop 11/13/16 at 21:00; Status DC Trazodone HCl (Desyrel) 500 mg QHS PO Last administered on 11/13/16 20:05; Start 11/13/16 at 21:00 Potassium Chloride (Klor-Con) 40 meq 1X ONCE PO Last administered on 20:06; Start 11/13/16 at 20:00; Stop 11/13/16 at 20:01; Status DC Active Scripts Active Reported Trazodone Hcl 100 Mg Tablet 1 Tab PO QHS Depakote Sprinkle (Divalproex Sodium) 125 Mg Cap.sprink 500 Mg PO BID Divalproex Sodium Er (Divalproex Sodium) 500 Mg Tab.er.24h 1,000 Mg PO DAILY Thiamine Hcl 100 Mg Tablet 100 Mg PO DAILY Folic Acid 1 Mg Tablet 1 Tab PO DAILY Thera-M (Multivits, W-Fe,Other Min) 1 Each Tablet 1 Each PO DAILY Pantoprazole Sodium 40 Mg Tablet.dr 1 Tab PO BID Lactulose 10 Gm/15 Ml Solution 30 Ml PO BID Atrovent Hfa (Ipratropium [place]) 12.9 Gm Hfa.aer.ad 2 Puff IH QID Guaifenesin 1,200 Mg Tab.er.12h 1,200 Mg PO Q12HR Vasotec (Enalapril Maleate) 20 Mg Tablet 10 Mg PO BID Coreg (Carvedilol) 12.5 Mg Tablet 12.5 Mg PO BIDWMEALS Norvasc (Amlodipine Besylate) 10 Mg Tablet 1 Tab PO DAILY Ventolin Hfa Inhaler (Albuterol Sulfate) 18 Gm Hfa.aer.ad 2 Puff IH PRN Q4HRS PRN Ventolin Hfa Inhaler (Albuterol Sulfate) 18 Gm Hfa.aer.ad 2 Puff IH Q4HRS Diagnosis: Problems: (1) Anxiety disorder (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
[2016-11-14] MEDS: IPRATROPIUM BROMIDE 0.5 MG/2.5 ML NEBU. NEB SCH ×4 (05:19→20:48)
[2016-11-14 06:13] VITALS: BP 105/70
[2016-11-14] MEDS: DIVALPROEX ER 500 MG TAB.ER.24H PO SCH (07:36)
[2016-11-14] MEDS: LACTULOSE 20 GM/30 ML SOLUTION. PO SCH ×2 (07:36→20:09)
[2016-11-14] MEDS: THIAMINE 100 MG TABLET. PO SCH (07:37)
[2016-11-14] MEDS: FOLIC ACID 1 MG TABLET PO SCH (07:41)
[2016-11-14] MEDS: MULTIVITAMIN with MINERAL TABLET. PO SCH (07:41)
[2016-11-14] MEDS: PANTOPRAZOLE 40 MG TABLET. PO SCH ×2 (07:45→20:10)
[2016-11-14] MEDS: QUEtiapine 25 MG TABLET. PO SCH (07:45)
[2016-11-14] MEDS: DIVALPROEX 125 MG CAP.SPRINK PO SCH ×2 (07:46→20:10)
[2016-11-14] MEDS: amLODIPine BESYLATE 10 MG TABLET PO SCH (07:47)
[2016-11-14] MEDS: LISINOPRIL 20 MG TABLET PO SCH ×2 (07:47→20:09)
[2016-11-14] MEDS: CARVEDILOL 12.5 MG TABLET PO SCH ×2 (07:47→17:00)
[2016-11-14 07:51] LABS: BASO % 0 % (0-3); EOS # 0.3 x10^3/uL (0.0-0.7); EOS % 2 % (0-3); HEMATOCRIT 41.1 % (39.0-53.0); HEMOGLOBIN 13.7 g/dL (13.0-17.5); LYMPH # 1.7 x10^3/uL (1.0-4.8); LYMPH % 14 % (24-48); MEAN CORPUSCULAR HEMOGLOBIN 30 pg (25-35); MEAN CORPUSCULAR HGB CONC 33 g/dL (31-37); MEAN CORPUSCULAR VOLUME 91 fL (79-100); MONO # 1.4 x10^3/uL (0.0-1.1); MONO % 11 % (0-9); NEUT # 9.1 x10^3uL (1.8-7.7); NEUT % 72 % (31-73); PLATELET COUNT 194 x10^3/uL (140-400); RED BLOOD COUNT 4.51 x10^6/uL (4.30-5.70); WHITE BLOOD COUNT 12.5 x10^3/uL (4.0-11.0)
[2016-11-14 08:12] LABS: ALBUMIN 3.1 g/dL (3.4-5.0); ALBUMIN/GLOBULIN RATIO 0.9 (1.0-1.7); CALCIUM 9.4 mg/dL (8.5-10.1); POTASSIUM 3.9 mmol/L (3.5-5.1); TOTAL BILIRUBIN 0.4 mg/dL (0.2-1.0); TOTAL PROTEIN 6.5 g/dL (6.4-8.2)
[2016-11-14 17:24] VITALS: BP 115/76
[2016-11-14] MEDS: traZODone 100 MG TABLET. PO SCH (20:10)
--- NOTE | 2016-11-14 20:18 | PDOC ---
Exam Ashvin Demential Exam: Ashvin Note: Please also refer to the separate dictated note~for this date of service dictated separately.~Patient seen individually. Discussed the patient with Nursing staff reviewed the chart.~Reviewed interim history and current functioning. Reviewed vital signs,~Labs/ Radiology~and current medications noted below. Continue current treatment with the changes noted in the dictated addendum note Assessment: Vital Signs: Vital Signs Date Time Temp Pulse Resp B/P (MAP) Pulse Ox O2 Delivery O2 Flow Rate FiO2 11/14/16 20:09 108 115/76 11/14/16 17:24 98.9 18 98 11/14/16 16:15 Room Air I&O Intake and Output 11/14/16 07:00 Intake Total 1000 ml Balance 1000 ml Intake Oral 1000 ml Labs: Laboratory Tests Test 11/14/16 07:06 White Blood Count 12.5 x10^3/uL (4.0-11.0) H Red Blood Count 4.51 x10^6/uL (4.30-5.70) Hemoglobin 13.7 g/dL (13.0-17.5) Hematocrit 41.1 % (39.0-53.0) Mean Corpuscular Volume 91 fL (79-100) Mean Corpuscular Hemoglobin 30 pg (25-35) Mean Corpuscular Hemoglobin Concent 33 g/dL (31-37) Red Cell Distribution Width 15.0 % (11.5-14.5) H Platelet Count 194 x10^3/uL (140-400) Neutrophils (%) (Auto) 72 % (31-73) Lymphocytes (%) (Auto) 14 % (24-48) L Monocytes (%) (Auto) 11 % (0-9) H Eosinophils (%) (Auto) 2 % (0-3) Basophils (%) (Auto) 0 % (0-3) Neutrophils # (Auto) 9.1 x10^3uL (1.8-7.7) H Lymphocytes # (Auto) 1.7 x10^3/uL (1.0-4.8) Monocytes # (Auto) 1.4 x10^3/uL (0.0-1.1) H Eosinophils # (Auto) 0.3 x10^3/uL (0.0-0.7) Basophils # (Auto) 0.0 x10^3/uL (0.0-0.2) Sodium Level 147 mmol/L (136-145) H Potassium Level 3.9 mmol/L (3.5-5.1) Chloride Level 111 mmol/L (98-107) H Carbon Dioxide Level 27 mmol/L (21-32) Anion Gap 9 (6-14) Blood Urea Nitrogen 20 mg/dL (8-26) Creatinine 1.0 mg/dL (0.7-1.3) Estimated GFR (Cockcroft-Gault) 75.0 BUN/Creatinine Ratio 20 (6-20) Glucose Level 112 mg/dL (70-99) H Calcium Level 9.4 mg/dL (8.5-10.1) Total Bilirubin 0.4 mg/dL (0.2-1.0) Aspartate Amino Transferase (AST) 10 U/L (15-37) L Alanine Aminotransferase (ALT) 13 U/L (16-63) L Alkaline Phosphatase 46 U/L (46-116) Total Protein 6.5 g/dL (6.4-8.2) Albumin 3.1 g/dL (3.4-5.0) L Albumin/Globulin Ratio 0.9 (1.0-1.7) L Current Medications: Meds: Current Medications Acetaminophen (Tylenol) 650 mg PRN Q6HRS PRN PO PAIN / TEMP Last administered on 11/13/16t 17:24; Start 11/11/16 at 18:30 Multi-Ingredient Ointment (Analgesic [place]) 1 melani PRN QID PRN TP MUSCLE PAIN; Start 11/11/16 at 18:30 Al Hydroxide/Mg Hydroxide (Mylanta Plus Xs) 15 ml PRN AFTMEALHC PRN PO DYSPEPSIA; Start 11/11/16 at 18:30 Magnesium Hydroxide (Milk Of Magnesia) 2,400 mg PRN QHS PRN PO CONSTIPATION; Start 11/11/16 at 18:30 Albuterol Sulfate (Ventolin Hfa) 2 puff PRN Q4HRS PRN IH FOR ASTHMA; Start 01/18 at 18:45; Stop 11/11/16 at 19:52; Status DC Albuterol Sulfate (Ventolin Hfa) 2 puff Q4HRS IH ; Start 11/11/16 at 20:00; Stop 11/11/16 at 20:00; Status DC Amlodipine Besylate (Norvasc) 10 mg DAILY PO Last administered on 11/13/16 07: 42; Start 11/12/16 at 09:00 Carvedilol (Coreg) 12.5 mg BIDWMEALS PO Last administered on 11/14/16 17:00; Start 11/12/16 at 08:00 Folic Acid (Folic Acid) 1 mg DAILY PO Last administered on 11/14/16 07:41; Start 11/12/16 at 09:00 Ipratropium [place] (Atrovent Hfa) 2 puff QID IH ; Start 11/11/16 at 21:00; Stop 11/11/16 at 21:00; Status DC Pantoprazole Sodium (Protonix) 40 mg BID PO Last administered on 11/14/16 20: 10; Start 11/11/16 at 21:00 Thiamine HCl (Vitamin B-1) 100 mg DAILY PO Last administered on 11/14/16 07:37 ; Start 11/12/16 at 09:00 Lisinopril (Prinivil) 20 mg BID PO Last administered on 11/14/16 20:09; Start 11/11/16 at 21:00 Guaifenesin (Mucinex Er) 1,200 mg Q12HR PO Last administered on 11/14/16 20:10 ; Start 11/11/16 at 21:00 Lactulose 20 gm BID PO Last administered on 11/14/16 20:09; Start 11/11/16 at 21:00 Multivitamins/ Calcium (Thera-M Plus) 1 tab DAILY PO Last administered on 07:41; Start 11/12/16 at 09:00 Divalproex Sodium (Depakote Sprinkles) 500 mg BID PO Last administered on 20:10; Start 11/11/16 at 21:00 Divalproex Sodium (Depakote Er) 1,000 mg DAILY PO Last administered on 07:36; Start 11/12/16 at 09:00 Ipratropium [place] (Atrovent) 0.5 mg RTQID NEB Last administered on 11/14/16 16:14; Start 11/11/16 at 20:00 Albuterol Sulfate (Ventolin) 2.5 mg PRN Q4HRS PRN NEB SHORTNESS OF BREATH; Start 11/11/16 at 19:45 Quetiapine Fumarate (SEROquel) 12.5 mg DAILY PO Last administered on 11/14/16 07:45; Start 11/13/16 at 09:00 Trazodone HCl (Desyrel) 100 mg QHS PO ; Start 11/13/16 at 21:00; Stop 11/13/16 at 21:00; Status DC Olanzapine (ZyPREXA ZYDIS) 2.5 mg PRN Q2HR PRN PO PSYCHOSIS Last administered on 11/14/16 20:11; Start 11/13/16 at 12:45 Mirtazapine (Remeron) 7.5 mg QHS PO ; Start 11/13/16 at 21:00; Stop 11/13/16 at 21:00; Status DC Trazodone HCl (Desyrel) 500 mg QHS PO Last administered on 11/14/16 20:10; Start 11/13/16 at 21:00 Potassium Chloride (Klor-Con) 40 meq 1X ONCE PO Last administered on 20:06; Start 11/13/16 at 20:00; Stop 11/13/16 at 20:01; Status DC Active Scripts Active Reported Trazodone Hcl 100 Mg Tablet 1 Tab PO QHS Depakote Sprinkle (Divalproex Sodium) 125 Mg Cap.sprink 500 Mg PO BID Divalproex Sodium Er (Divalproex Sodium) 500 Mg Tab.er.24h 1,000 Mg PO DAILY Thiamine Hcl 100 Mg Tablet 100 Mg PO DAILY Folic Acid 1 Mg Tablet 1 Tab PO DAILY Thera-M (Multivits,Th W-Fe,Other Min) 1 Each Tablet 1 Each PO DAILY Pantoprazole Sodium 40 Mg Tablet.dr 1 Tab PO BID Lactulose 10 Gm/15 Ml Solution 30 Ml PO BID Atrovent Hfa (Ipratropium [place]) 12.9 Gm Hfa.aer.ad 2 Puff IH QID Guaifenesin 1,200 Mg Tab.er.12h 1,200 Mg PO Q12HR Vasotec (Enalapril Maleate) 20 Mg Tablet 10 Mg PO BID Coreg (Carvedilol) 12.5 Mg Tablet 12.5 Mg PO BIDWMEALS Norvasc (Amlodipine Besylate) 10 Mg Tablet 1 Tab PO DAILY Ventolin Hfa Inhaler (Albuterol Sulfate) 18 Gm Hfa.aer.ad 2 Puff IH PRN Q4HRS PRN Ventolin Hfa Inhaler (Albuterol Sulfate) 18 Gm Hfa.aer.ad 2 Puff IH Q4HRS Diagnosis: Problems: (1) Anxiety disorder (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
--- NOTE | 2016-11-14 20:23 | PN ---
DATE: 11/13/2016 This is a late entry for 11/13/2016 and covers elements not covered in my initial note. I met with the patient evening of 11/13/2016. The patient slept just a quarter hour last night. He apparently did not receive the trazodone 100 mg p.o. at bedtime, august repeat x 1 that I had ordered and per nursing report has called and is quite insistent the patient return back to the 500 mg trazodone at bedtime that he was taking prior to admission. We will go ahead and do this and for now, I will discontinue the Lexapro 5 mg a day I had considered starting as an antidepressant and antianxiety agent and the Remeron 7.5 mg at bedtime and low dose trazodone that had I considered for the insomnia, anxiety, mood symptoms. From nursing descriptions, is quite clear that this patient's outpatient physician definitely wants the patient back on the full dosage of trazodone and I had considered the risk/benefit ratio of adding the Remeron and Lexapro to that and decided that ratio favored not adding those at this time if he were to go with higher dosage of trazodone. He is ambulating a little better, still somewhat irritable, labile in his mood. No CV, , pulmonary, eye system symptoms on review. MENTAL STATUS EXAM: Oriented to himself and situation. Speech has some latency, coherent. Abstraction fair, computation impaired, language function intact, attention span short. Mood and affect, somewhat anxious, labile, paranoid, tearful at times. He is a sliding himself down the wall, but no injuries noted. This is something he had done previously as well. We have added Zyprexa p.r.n. for this. IMPRESSION: Unchanged from initial note. PLAN: Make the changes noted above. I had a lengthy discussion and review of his psychotropics as part of this complicated scenario. CHALINO GUTIERRES MD DR: JACK/eyal JOB#: [id number] / [id number]
[2016-11-15] MEDS: IPRATROPIUM BROMIDE 0.5 MG/2.5 ML NEBU. NEB SCH ×4 (06:03→20:56)
[2016-11-15 06:07] VITALS: BP 107/71
[2016-11-15] MEDS: DIVALPROEX ER 500 MG TAB.ER.24H PO SCH (08:32)
[2016-11-15] MEDS: PANTOPRAZOLE 40 MG TABLET. PO SCH ×2 (08:32→19:58)
[2016-11-15] MEDS: MULTIVITAMIN with MINERAL TABLET. PO SCH (08:33)
[2016-11-15] MEDS: FOLIC ACID 1 MG TABLET PO SCH (08:33)
[2016-11-15] MEDS: THIAMINE 100 MG TABLET. PO SCH (08:33)
[2016-11-15] MEDS: LISINOPRIL 20 MG TABLET PO SCH ×2 (08:33→19:58)
[2016-11-15] MEDS: QUEtiapine 25 MG TABLET. PO SCH (08:33)
[2016-11-15] MEDS: amLODIPine BESYLATE 10 MG TABLET PO SCH (08:34)
[2016-11-15] MEDS: DIVALPROEX 125 MG CAP.SPRINK PO SCH ×2 (08:34→19:57)
[2016-11-15] MEDS: CARVEDILOL 12.5 MG TABLET PO SCH ×2 (08:34→16:19)
[2016-11-15] MEDS: LACTULOSE 20 GM/30 ML SOLUTION. PO SCH ×2 (08:36→19:58)
[2016-11-15 16:46] VITALS: BP 104/64
[2016-11-15] MEDS: traZODone 100 MG TABLET. PO SCH (19:59)
--- NOTE | 2016-11-15 20:15 | PDOC ---
Exam Ashvin Demential Exam: Ashvin Note: Please also refer to the separate dictated note~for this date of service dictated separately.~Patient seen individually. Discussed the patient with Nursing staff reviewed the chart.~Reviewed interim history and current functioning. Reviewed vital signs,~Labs/ Radiology~and current medications noted below. Continue current treatment with the changes noted in the dictated addendum note Assessment: Vital Signs: Vital Signs Date Time Temp Pulse Resp B/P (MAP) Pulse Ox O2 Delivery O2 Flow Rate FiO2 11/15/16 19:58 87 104/64 11/15/16 16:46 98.7 20 92 11/15/16 16:35 Room Air I&O Intake and Output 11/15/16 07:00 Intake Total 1120 ml Balance 1120 ml Intake Oral 1120 ml Current Medications: Meds: Current Medications Acetaminophen (Tylenol) 650 mg PRN Q6HRS PRN PO PAIN / TEMP Last administered on 11/13/16 17:24; Start 11/11/16 at 18:30 Multi-Ingredient Ointment (Analgesic [place]) 1 melani PRN QID PRN TP MUSCLE PAIN; Start 11/11/16 at 18:30 Al Hydroxide/Mg Hydroxide (Mylanta Plus Xs) 15 ml PRN AFTMEALHC PRN PO DYSPEPSIA; Start 11/11/16 at 18:30 Magnesium Hydroxide (Milk Of Magnesia) 2,400 mg PRN QHS PRN PO CONSTIPATION; Start 11/11/16 at 18:30 Albuterol Sulfate (Ventolin Hfa) 2 puff PRN Q4HRS PRN IH FOR ASTHMA; Start 01/18 at 18:45; Stop 11/11/16 at 19:52; Status DC Albuterol Sulfate (Ventolin Hfa) 2 puff Q4HRS IH ; Start 11/11/16 at 20:00; Stop 11/11/16 at 20:00; Status DC Amlodipine Besylate (Norvasc) 10 mg DAILY PO Last administered on 11/15/16 08: 34; Start 11/12/16 at 09:00 Carvedilol (Coreg) 12.5 mg BIDWMEALS PO Last administered on 11/15/16 16:19; Start 11/12/16 at 08:00 Folic Acid (Folic Acid) 1 mg DAILY PO Last administered on 11/15/16 08:33; Start 11/12/16 at 09:00 Ipratropium [place] (Atrovent Hfa) 2 puff QID IH ; Start 11/11/16 at 21:00; Stop 11/11/16 at 21:00; Status DC Pantoprazole Sodium (Protonix) 40 mg BID PO Last administered on 11/15/16 19: 58; Start 11/11/16 at 21:00 Thiamine HCl (Vitamin B-1) 100 mg DAILY PO Last administered on 11/15/16 08:33 ; Start 11/12/16 at 09:00 Lisinopril (Prinivil) 20 mg BID PO Last administered on 11/15/16 19:58; Start 11/11/16 at 21:00 Guaifenesin (Mucinex Er) 1,200 mg Q12HR PO Last administered on 11/15/16 20:01 ; Start 11/11/16 at 21:00 Lactulose 20 gm BID PO Last administered on 11/15/16 19:58; Start 11/11/16 at 21:00 Multivitamins/ Calcium (Thera-M Plus) 1 tab DAILY PO Last administered on 08:33; Start 11/12/16 at 09:00 Divalproex Sodium (Depakote Sprinkles) 500 mg BID PO Last administered on 19:57; Start 11/11/16 at 21:00 Divalproex Sodium (Depakote Er) 1,000 mg DAILY PO Last administered on 08:32; Start 11/12/16 at 09:00 Ipratropium [place] (Atrovent) 0.5 mg RTQID NEB Last administered on 11/15/16 16:35; Start 11/11/16 at 20:00 Albuterol Sulfate (Ventolin) 2.5 mg PRN Q4HRS PRN NEB SHORTNESS OF BREATH; Start 11/11/16 at 19:45 Quetiapine Fumarate (SEROquel) 12.5 mg DAILY PO Last administered on 11/15/16 08:33; Start 11/13/16 at 09:00 Trazodone HCl (Desyrel) 100 mg QHS PO ; Start 11/13/16 at 21:00; Stop 11/13/16 at 21:00; Status DC Olanzapine (ZyPREXA ZYDIS) 2.5 mg PRN Q2HR PRN PO PSYCHOSIS Last administered on 11/14/16 20:11; Start 11/13/16 at 12:45 Mirtazapine (Remeron) 7.5 mg QHS PO ; Start 11/13/16 at 21:00; Stop 11/13/16 at 21:00; Status DC Trazodone HCl (Desyrel) 500 mg QHS PO Last administered on 11/15/16 19:59; Start 11/13/16 at 21:00 Potassium Chloride (Klor-Con) 40 meq 1X ONCE PO Last administered on 20:06; Start 11/13/16 at 20:00; Stop 11/13/16 at 20:01; Status DC Active Scripts Active Reported Trazodone Hcl 100 Mg Tablet 1 Tab PO QHS Depakote Sprinkle (Divalproex Sodium) 125 Mg Cap.sprink 500 Mg PO BID Divalproex Sodium Er (Divalproex Sodium) 500 Mg Tab.er.24h 1,000 Mg PO DAILY Thiamine Hcl 100 Mg Tablet 100 Mg PO DAILY Folic Acid 1 Mg Tablet 1 Tab PO DAILY Thera-M (Multivits,Th W-Fe,Other Min) 1 Each Tablet 1 Each PO DAILY Pantoprazole Sodium 40 Mg Tablet.dr 1 Tab PO BID Lactulose 10 Gm/15 Ml Solution 30 Ml PO BID Atrovent Hfa (Ipratropium [place]) 12.9 Gm Hfa.aer.ad 2 Puff IH QID Guaifenesin 1,200 Mg Tab.er.12h 1,200 Mg PO Q12HR Vasotec (Enalapril Maleate) 20 Mg Tablet 10 Mg PO BID Coreg (Carvedilol) 12.5 Mg Tablet 12.5 Mg PO BIDWMEALS Norvasc (Amlodipine Besylate) 10 Mg Tablet 1 Tab PO DAILY Ventolin Hfa Inhaler (Albuterol Sulfate) 18 Gm Hfa.aer.ad 2 Puff IH PRN Q4HRS PRN Ventolin Hfa Inhaler (Albuterol Sulfate) 18 Gm Hfa.aer.ad 2 Puff IH Q4HRS Diagnosis: Problems: (1) Anxiety disorder (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
[2016-11-16 05:25] VITALS: BP 106/70
[2016-11-16] MEDS: IPRATROPIUM BROMIDE 0.5 MG/2.5 ML NEBU. NEB SCH ×4 (06:04→20:30)
--- NOTE | 2016-11-16 08:40 | PN ---
DATE: 11/14/2016 SUBJECTIVE: This late entry 11/14/2016 covers elements not covered in my initial note of 11/14/2016. Met with the patient evening of 11/14/2016. He received the 500 mg of trazodone previous evening, which is what he was taking at home and his are insistent he get back on that dosage. He has been somewhat sedated during the day, perhaps partly as a consequence of that but he slept 6 hours previous night. He again himself down the wall to the floor, slept from 11:00 a.m. to 2:00 p.m., told staff that he has drug paraphernalia at home. His denies this. REVIEW OF SYSTEMS: Ambulation impaired. No CV, , pulmonary, eye, ENT system symptoms on review. MENTAL STATUS EXAM: Oriented to himself and situation. Speech has some latency, coherent. Abstraction fair, computation impaired, language function intact, attention span short. Mood and affect still somewhat anxious, labile, but showing improvement. LABORATORY DATA: Reviewed. IMPRESSION: Unchanged from initial note. PLAN: Continue current psychotropics. Valproic acid level is 91. MAN Ruth GUTIERRES MD DR: JACK/eyal JOB#: [id number] / [id number]
[2016-11-16] MEDS: DIVALPROEX 125 MG CAP.SPRINK PO SCH ×2 (09:55→20:04)
[2016-11-16] MEDS: LACTULOSE 20 GM/30 ML SOLUTION. PO SCH ×2 (09:56→19:52)
[2016-11-16] MEDS: FOLIC ACID 1 MG TABLET PO SCH (09:56)
[2016-11-16] MEDS: LISINOPRIL 20 MG TABLET PO SCH ×2 (09:56→21:45)
[2016-11-16] MEDS: amLODIPine BESYLATE 10 MG TABLET PO SCH (09:57)
[2016-11-16] MEDS: PANTOPRAZOLE 40 MG TABLET. PO SCH ×2 (09:57→19:54)
[2016-11-16] MEDS: CARVEDILOL 12.5 MG TABLET PO SCH ×2 (09:57→16:00)
[2016-11-16] MEDS: DIVALPROEX ER 500 MG TAB.ER.24H PO SCH (09:58)
[2016-11-16] MEDS: MULTIVITAMIN with MINERAL TABLET. PO SCH (09:58)
[2016-11-16] MEDS: THIAMINE 100 MG TABLET. PO SCH (10:00)
[2016-11-16] MEDS: QUEtiapine 25 MG TABLET. PO SCH (10:01)
[2016-11-16] MEDS: ACETAMINOPHEN 325 MG TABLET PO PRN (12:59)
[2016-11-16] MEDS: METHYL SALICYLATE/MENTHOL TOPICAL OINTMENT 29GM TUBE. TP PRN (12:59)
[2016-11-16 16:20] VITALS: BP 101/73
--- NOTE | 2016-11-16 19:49 | PDOC ---
Exam Ashvin Demential Exam: Ashvin Note: Please also refer to the separate dictated note~for this date of service dictated separately.~Patient seen individually. Discussed the patient with Nursing staff reviewed the chart.~Reviewed interim history and current functioning. Reviewed vital signs,~Labs/ Radiology~and current medications noted below. Continue current treatment with the changes noted in the dictated addendum note Assessment: Vital Signs: Vital Signs Date Time Temp Pulse Resp B/P (MAP) Pulse Ox O2 Delivery O2 Flow Rate FiO2 11/16/16 16:20 98.3 80 16 101/73 (82) 96 11/16/16 15:34 Room Air I&O Intake and Output 11/16/16 07:00 Intake Total 780 ml Balance 780 ml Intake Oral 780 ml Current Medications: Meds: Current Medications Acetaminophen (Tylenol) 650 mg PRN Q6HRS PRN PO PAIN / TEMP Last administered on 11/16/16 12:59; Start 11/11/16 at 18:30 Multi-Ingredient Ointment (Analgesic [place]) 1 melani PRN QID PRN TP MUSCLE PAIN Last administered on 11/16/16 12:59; Start 11/11/16 at 18:30 Al Hydroxide/Mg Hydroxide (Mylanta Plus Xs) 15 ml PRN AFTMEALHC PRN PO DYSPEPSIA; Start 11/11/16 at 18:30 Magnesium Hydroxide (Milk Of Magnesia) 2,400 mg PRN QHS PRN PO CONSTIPATION; Start 11/11/16 at 18:30 Albuterol Sulfate (Ventolin Hfa) 2 puff PRN Q4HRS PRN IH FOR ASTHMA; Start 01/18 at 18:45; Stop 11/11/16 at 19:52; Status DC Albuterol Sulfate (Ventolin Hfa) 2 puff Q4HRS IH ; Start 11/11/16 at 20:00; Stop 11/11/16 at 20:00; Status DC Amlodipine Besylate (Norvasc) 10 mg DAILY PO Last administered on 11/16/16 09: 57; Start 11/12/16 at 09:00 Carvedilol (Coreg) 12.5 mg BIDWMEALS PO Last administered on 11/16/16 16:00; Start 11/12/16 at 08:00 Folic Acid (Folic Acid) 1 mg DAILY PO Last administered on 11/16/16 09:56; Start 11/12/16 at 09:00 Ipratropium [place] (Atrovent Hfa) 2 puff QID IH ; Start 11/11/16 at 21:00; Stop 11/11/16 at 21:00; Status DC Pantoprazole Sodium (Protonix) 40 mg BID PO Last administered on 11/16/16 09: 57; Start 11/11/16 at 21:00 Thiamine HCl (Vitamin B-1) 100 mg DAILY PO Last administered on 11/16/16 10:00 ; Start 11/12/16 at 09:00 Lisinopril (Prinivil) 20 mg BID PO Last administered on 11/16/16 09:56; Start 11/11/16 at 21:00 Guaifenesin (Mucinex Er) 1,200 mg Q12HR PO Last administered on 11/16/16 10:00 ; Start 11/11/16 at 21:00 Lactulose 20 gm BID PO Last administered on 11/16/16 09:56; Start 11/11/16 at 21:00 Multivitamins/ Calcium (Thera-M Plus) 1 tab DAILY PO Last administered on 09:58; Start 11/12/16 at 09:00 Divalproex Sodium (Depakote Sprinkles) 500 mg BID PO Last administered on 09:55; Start 11/11/16 at 21:00; Stop 11/16/16 at 18:12; Status DC Divalproex Sodium (Depakote Er) 1,000 mg DAILY PO Last administered on 09:58; Start 11/12/16 at 09:00; Stop 11/16/16 at 18:12; Status DC Ipratropium [place] (Atrovent) 0.5 mg RTQID NEB Last administered on 11/16/16 15:33; Start 11/11/16 at 20:00 Albuterol Sulfate (Ventolin) 2.5 mg PRN Q4HRS PRN NEB SHORTNESS OF BREATH; Start 11/11/16 at 19:45 Quetiapine Fumarate (SEROquel) 12.5 mg DAILY PO Last administered on 11/16/16 10:01; Start 11/13/16 at 09:00 Trazodone HCl (Desyrel) 100 mg QHS PO ; Start 11/13/16 at 21:00; Stop 11/13/16 at 21:00; Status DC Olanzapine (ZyPREXA ZYDIS) 2.5 mg PRN Q2HR PRN PO PSYCHOSIS Last administered on 11/14/16 20:11; Start 11/13/16 at 12:45 Mirtazapine (Remeron) 7.5 mg QHS PO ; Start 11/13/16 at 21:00; Stop 11/13/16 at 21:00; Status DC Trazodone HCl (Desyrel) 500 mg QHS PO Last administered on 11/15/16 19:59; Start 11/13/16 at 21:00 Potassium Chloride (Klor-Con) 40 meq 1X ONCE PO Last administered on 20:06; Start 11/13/16 at 20:00; Stop 11/13/16 at 20:01; Status DC Divalproex Sodium (Depakote Er) 2,000 mg QHS PO ; Start 11/17/16 at 21:00 Active Scripts Active Reported Trazodone Hcl 100 Mg Tablet 1 Tab PO QHS Depakote Sprinkle (Divalproex Sodium) 125 Mg Cap.sprink 500 Mg PO BID Divalproex Sodium Er (Divalproex Sodium) 500 Mg Tab.er.24h 1,000 Mg PO DAILY Thiamine Hcl 100 Mg Tablet 100 Mg PO DAILY Folic Acid 1 Mg Tablet 1 Tab PO DAILY Thera-M (Multivits,Th W-Fe,Other Min) 1 Each Tablet 1 Each PO DAILY Pantoprazole Sodium 40 Mg Tablet.dr 1 Tab PO BID Lactulose 10 Gm/15 Ml Solution 30 Ml PO BID Atrovent Hfa (Ipratropium [place]) 12.9 Gm Hfa.aer.ad 2 Puff IH QID Guaifenesin 1,200 Mg Tab.er.12h 1,200 Mg PO Q12HR Vasotec (Enalapril Maleate) 20 Mg Tablet 10 Mg PO BID Coreg (Carvedilol) 12.5 Mg Tablet 12.5 Mg PO BIDWMEALS Norvasc (Amlodipine Besylate) 10 Mg Tablet 1 Tab PO DAILY Ventolin Hfa Inhaler (Albuterol Sulfate) 18 Gm Hfa.aer.ad 2 Puff IH PRN Q4HRS PRN Ventolin Hfa Inhaler (Albuterol Sulfate) 18 Gm Hfa.aer.ad 2 Puff IH Q4HRS Diagnosis: Problems: (1) Anxiety disorder (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
[2016-11-16] MEDS: traZODone 100 MG TABLET. PO SCH (19:54)
[2016-11-16] MEDS ORDERED: DIVALPROEX ER 500 MG TAB.ER.24H PO SCH (21:00)
[2016-11-16] MEDS ORDERED: DIVALPROEX 125 MG CAP.SPRINK PO SCH (21:45)
--- NOTE | 2016-11-16 23:29 | CONS ---
DATE OF CONSULTATION: 11/11/2016 NEUROLOGY CONSULTATION REASON FOR CONSULTATION: Rule out seizures. HISTORY OF PRESENT ILLNESS: This is a 65-year-old male who has been in his usual state of health until recently when he started experiencing a sudden onset of confusion, disorientation and questionable seizure. The patient has had a history of a seizure disorder; however, reviewing report from __ revealed extensive neurological workup including a head CAT scan, brain MRI, which revealed no significant abnormalities. The patient was diagnosed to have an EEG, but no report was found about the test. Currently, the patient is sitting in his bed. He speaks slowly and rarely. He barely follows commands. Appears to be drowsy and not willing to provide any information. According to his , the patient used to be alert and oriented x 4, and she stated her was found to have episode of being unresponsive and confused. PAST MEDICAL HISTORY: Significant for chronic alcoholism, but the patient denies recent alcohol use, history of major depressions, hypertension, hyperlipidemia, arthritis, anxiety and GERD. SOCIAL HISTORY: Positive for appendectomy and tonsillectomy. CURRENT MEDICATIONS: Trazodone, olanzapine 2.5 mg q. 2 hours p.r.n. for psychosis, Seroquel 12.5 mg daily, valproic acid 1000 mg daily, multivitamins, thiamine, folic acid 1 mg daily, amlodipine 10 mg daily, carvedilol 12.5 mg twice daily, Depakote 500 mg b.i.d., lactulose, Mucinex expectorant q. 12 hours, lisinopril 20 mg b.i.d., Protonix 40 mg b.i.d., Atrovent nebulizer q.i.d., Ventolin inhalers p.r.n. ALLERGIES: LORATADINE. REVIEW OF SYSTEMS: A 10-point review of system was performed as stated in the history of present illness. SOCIAL HISTORY: The patient lives with his at home. He has a long history of alcohol drinking, but he has not drunk for a while. PHYSICAL EXAMINATION: GENERAL: Well-developed, well-nourished white male, not in acute distress. He weighs 143.6 pounds, height 64 inches. VITAL SIGNS: Blood pressure 136/94, respiratory rate 22, pulse is 94 and regular, temperature is 98.4, oxygen saturation 95% on room air. HEENT: Normocephalic, atraumatic, otherwise unremarkable. NECK: Supple. Negative for carotid bruit, lymphadenopathy or thyromegaly. LUNGS: Clear to A and P. CARDIOVASCULAR: Regular rhythm, normal S1, S2. There is no S3, S4 or murmur. ABDOMEN: Soft. Bowel sounds positive. EXTREMITIES: Negative for cyanosis, clubbing or edema. NEUROLOGIC: Mental status: The patient is alert, but does not follow commands, appears to be tired. Further evaluation is limited at this time. Cranial nerves: The pupils are reactive to light and accommodation. The extraocular movements are intact. There is no nystagmus. There is no facial motor or sensory deficit. Hearing appears to be intact. The palate is elevated symmetrically. Sternocleidomastoid muscles are powerful bilaterally. The patient shrugs his shoulders symmetrically, protrudes his tongue in the midline without fasciculation or atrophy. Motor examination: No focal muscle bulk was seen. The tone is normal. The strength is 4/5 throughout. Sensory examination revealed normal pinprick, light touch, vibratory and position senses. Deep tendon reflexes were symmetric and hypoactive without pathology responses. Gait: The patient is unsteady and he uses a wheelchair for ambulation. LABORATORY DATA: CBC and chemistry are pending. IMPRESSION: 1. Chronic alcoholism. The patient has not been drinking for a while. 2. Sudden onset of recurrent confusion, rule out seizure versus psychosis. 3. Multiple medical problems include hypertension, hyperlipidemia, gastroesophageal reflux disease, depression, anxiety, impulse disorder, hypertension, hyperlipidemia, arthritis. RECOMMENDATIONS: 1. To obtain an EEG. 2. Continue with current psychiatric and medical care. M Osvaldo MADISON MD DR: CECILE/eyal JOB#: [id number] / [id number]
--- NOTE | 2016-11-16 23:52 | PN ---
DATE: 11/12/2016 SUBJECTIVE: The patient denies any new medical or neurological complaints. It was reported that the patient sled down to the wall while talking to his on telephone, was confused and disoriented. The patient did not recall the event; however, he denies any injuries or loss of consciousness. OBJECTIVE: GENERAL: Well-developed, well-nourished white male, not in acute distress. VITAL SIGNS: Blood pressure 147/79, respiratory rate 20, pulse is 94, temperature 98.2, oxygen saturation 98% on room air. HEENT: Normocephalic, atraumatic, otherwise unremarkable. NECK: Supple. Negative for carotid bruit, lymphadenopathy or thyromegaly. LUNGS: Clear to A and P. CARDIOVASCULAR: Regular rate and rhythm, normal S1, S2. ABDOMEN: Soft. Bowel sounds positive. EXTREMITIES: Negative for cyanosis, clubbing or pitting edema. NEUROLOGIC: The patient is alert to himself. He follows 1-step commands. His speech is slow, but he really answers in few sentences. Judgment, abstract thinking and memory is difficult to evaluate at this time. CRANIAL NERVES: Pupils are equal and reactive to light and accommodation. Extraocular movements are intact. There is no nystagmus. There is no facial motor or sensory deficit. Hearing appeared to be intact bilaterally. Motor exam show focal muscle bulk was seen. The tone is normal. The strength is 4/5 throughout. Sensory: Revealed normal pinprick, light touch senses throughout. Deep tendon reflexes are symmetric and hypoactive with absent Achilles responses. Gait: The patient has unsteady stance. LABORATORY DATA: CBC revealed white blood cells of 13,000, hemoglobin 13.7, hematocrit 48.6, platelet count 186,000. Chemistry revealed iron of 24, iron saturation is low at 11. Liver enzymes are low. Lipid profile is normal. Vitamin B12 is in normal range and vitamin D is normal at 44.4 and thyroid profile is normal. Valproic acid on 11/12/2016 was 91. IMPRESSION: 1. History of seizure disorder, rule out recurrent seizure. 2. Longstanding history of alcoholism, but is out of for the window for alcohol withdrawal seizure. 3. Multiple medical problems include hypertension, hyperlipidemia, GERD, arthritis. 4. Multiple psychiatric problems including depression, anxiety, paranoid. RECOMMENDATIONS: 1. Await for an EEG. 2. Continue with current care initiated by Dr. Jacqueline Joe and Dr. Amador. M Osvaldo MADISON MD DR: CECILE/eyal JOB#: [id number] / [id number]
--- NOTE | 2016-11-17 03:26 | PN ---
DATE: 11/15/2016 PSYCHIATRIC PROGRESS NOTE This is a late entry of 11/15/2016 covers elements not covered in my initial note of 11/15/2016. I met with the patient on the evening of 11/15/2016 for this evaluation. Per nursing report, the patient did do "not so great" the previous evening. During the day on 11/15/2016, he was aware of his date of , thought the year was 2014, knew who the President was, still talking about cocaine, heroin and alcohol and that he has paraphernalia at home. His has called 4 times per nursing staff and several other times to check with nursing staff. Staff are trying to coordinate level. EEG is unremarkable and I discussed with Dr. Sánchez, Neurology. REVIEW OF SYSTEMS: Ambulation impaired. No CV, , pulmonary, eye, ENT systems symptoms on review. MENTAL STATUS EXAM: Oriented to himself and situation. Speech has some latency, coherent. Abstraction fair, computation impaired, language function intact, attention span short. Mood and affect still somewhat labile at times, but improved. LABORATORY DATA: Reviewed. IMPRESSION: Unchanged from initial note. PLAN: Continue current psychotropics. Valproic acid level is 91, therapeutic, . Reviewed drug interactions risk/benefit ratio, favors no change for now. MAN Ruth GUTIERRES MD DR: JACK/eyal JOB#: [id number] / [id number]
[2016-11-17] MEDS: IPRATROPIUM BROMIDE 0.5 MG/2.5 ML NEBU. NEB SCH ×4 (05:15→20:00)
[2016-11-17 06:22] VITALS: BP 120/68
[2016-11-17] MEDS: QUEtiapine 25 MG TABLET. PO SCH ×2 (08:04→20:39)
[2016-11-17] MEDS: LACTULOSE 20 GM/30 ML SOLUTION. PO SCH ×2 (08:04→20:35)
[2016-11-17] MEDS: FOLIC ACID 1 MG TABLET PO SCH (08:05)
[2016-11-17] MEDS: CARVEDILOL 12.5 MG TABLET PO SCH ×2 (08:05→16:18)
[2016-11-17] MEDS: amLODIPine BESYLATE 10 MG TABLET PO SCH (08:05)
[2016-11-17] MEDS: THIAMINE 100 MG TABLET. PO SCH (08:05)
[2016-11-17] MEDS: PANTOPRAZOLE 40 MG TABLET. PO SCH ×2 (08:06→20:33)
[2016-11-17] MEDS: MULTIVITAMIN with MINERAL TABLET. PO SCH (08:06)
[2016-11-17] MEDS: LISINOPRIL 20 MG TABLET PO SCH ×2 (08:06→20:35)
[2016-11-17] MEDS: METHYL SALICYLATE/MENTHOL TOPICAL OINTMENT 29GM TUBE. TP PRN (11:07)
[2016-11-17] MEDS: ACETAMINOPHEN 325 MG TABLET PO PRN (11:07)
--- NOTE | 2016-11-17 14:57 | PN ---
DATE: SUBJECTIVE: The patient denies any new medical neurological complaints. The nursing staff has not witnessed any seizure-like activities. The patient continued to have intermittent and sudden onset of sliding to the wall, but no reported injuries. The patient denies headaches, visual disturbances, nausea, vomiting, chest pain, shortness of breath, or palpitation. OBJECTIVE: GENERAL: Well-developed, well-nourished white male, not in acute distress. VITAL SIGNS: Blood pressure 110/75, respiratory rate 18, pulse is 93, temperature 98.1, oxygen saturation 97% on room air. HEENT: Normocephalic, atraumatic, otherwise unremarkable. NECK: Supple. Negative for carotid bruit, lymphadenopathy or thyromegaly. LUNGS: Clear to A and P. CARDIOVASCULAR: Regular rate and rhythm, normal S1, S2. ABDOMEN: Soft. Bowel sounds positive. EXTREMITIES: Negative for cyanosis, clubbing or pitting edema. NEUROLOGIC: The patient is alert and oriented to himself. His speech is still late, but he answered questions with short sentences. He follows 1-step commands. Memory, judgment, and abstract thinking are fair. The patient denies hallucination or delusion. Cranial nerves are grossly intact. Motor Examination: No focal muscle bulk was seen. The tone is normal. The strength is 4/5 throughout. Sensory examination revealed normal pinprick and light touch senses throughout. Deep tendon reflexes were symmetric and hypoactive without pathologic responses. Gait: The patient uses a walker sometimes for ambulation. The stance is more steady now. IMPRESSION: 1. History of seizure. 2. Long-standing history of alcoholism, but has not drunk for a while. 3. Multiple medical problems include hypertension, hyperlipidemia, GERD, arthritis, multiple psychiatric problems include depressions, paranoid, and anxiety. RECOMMENDATIONS: 1. Await for an EEG, which can be done today. 2. Continue with current psychiatric and medical care along with physical therapy evaluation M Osvaldo MADISON MD DR: CECILE/eyal JOB#: [id number] / [id number]
[2016-11-17 16:27] VITALS: BP 122/79
--- NOTE | 2016-11-17 19:47 | PDOC ---
Exam Ashvin Demential Exam: Ashvin Note: Please also refer to the separate dictated note~for this date of service dictated separately.~Patient seen individually. Discussed the patient with Nursing staff reviewed the chart.~Reviewed interim history and current functioning. Reviewed vital signs,~Labs/ Radiology~and current medications noted below. Continue current treatment with the changes noted in the dictated addendum note Assessment: Vital Signs: Vital Signs Date Time Temp Pulse Resp B/P (MAP) Pulse Ox O2 Delivery O2 Flow Rate FiO2 11/17/16 16:27 97.9 76 20 122/79 (93) 96 11/17/16 15:46 Room Air I&O Intake and Output 11/17/16 07:00 Intake Total 1320 ml Balance 1320 ml Intake Oral 1320 ml Current Medications: Meds: Current Medications Acetaminophen (Tylenol) 650 mg PRN Q6HRS PRN PO PAIN / TEMP Last administered on 11/17/16 11:07; Start 11/11/16 at 18:30 Multi-Ingredient Ointment (Analgesic [place]) 1 melani PRN QID PRN TP MUSCLE PAIN Last administered on 11/17/16 11:07; Start 11/11/16 at 18:30 Al Hydroxide/Mg Hydroxide (Mylanta Plus Xs) 15 ml PRN AFTMEALHC PRN PO DYSPEPSIA; Start 11/11/16 at 18:30 Magnesium Hydroxide (Milk Of Magnesia) 2,400 mg PRN QHS PRN PO CONSTIPATION; Start 11/11/16 at 18:30 Albuterol Sulfate (Ventolin Hfa) 2 puff PRN Q4HRS PRN IH FOR ASTHMA; Start 01/18 at 18:45; Stop 11/11/16 at 19:52; Status DC Albuterol Sulfate (Ventolin Hfa) 2 puff Q4HRS IH ; Start 11/11/16 at 20:00; Stop 11/11/16 at 20:00; Status DC Amlodipine Besylate (Norvasc) 10 mg DAILY PO Last administered on 11/17/16 08: 05; Start 11/12/16 at 09:00 Carvedilol (Coreg) 12.5 mg BIDWMEALS PO Last administered on 11/17/16 16:18; Start 11/12/16 at 08:00 Folic Acid (Folic Acid) 1 mg DAILY PO Last administered on 11/17/16 08:05; Start 11/12/16 at 09:00 Ipratropium [place] (Atrovent Hfa) 2 puff QID IH ; Start 11/11/16 at 21:00; Stop 11/11/16 at 21:00; Status DC Pantoprazole Sodium (Protonix) 40 mg BID PO Last administered on 11/17/16 08: 06; Start 11/11/16 at 21:00 Thiamine HCl (Vitamin B-1) 100 mg DAILY PO Last administered on 11/17/16 08:05 ; Start 11/12/16 at 09:00 Lisinopril (Prinivil) 20 mg BID PO Last administered on 11/17/16 08:06; Start 11/11/16 at 21:00 Guaifenesin (Mucinex Er) 1,200 mg Q12HR PO Last administered on 11/17/16 08:04 ; Start 11/11/16 at 21:00 Lactulose 20 gm BID PO Last administered on 11/17/16 08:04; Start 11/11/16 at 21:00 Multivitamins/ Calcium (Thera-M Plus) 1 tab DAILY PO Last administered on 08:06; Start 11/12/16 at 09:00 Divalproex Sodium (Depakote Sprinkles) 500 mg BID PO Last administered on 09:55; Start 11/11/16 at 21:00; Stop 11/16/16 at 18:12; Status DC Divalproex Sodium (Depakote Er) 1,000 mg DAILY PO Last administered on 09:58; Start 11/12/16 at 09:00; Stop 11/16/16 at 18:12; Status DC Ipratropium [place] (Atrovent) 0.5 mg RTQID NEB Last administered on 11/17/16 15:46; Start 11/11/16 at 20:00 Albuterol Sulfate (Ventolin) 2.5 mg PRN Q4HRS PRN NEB SHORTNESS OF BREATH; Start 11/11/16 at 19:45 Quetiapine Fumarate (SEROquel) 12.5 mg DAILY PO Last administered on 11/17/16 08:04; Start 11/13/16 at 09:00; Stop 11/17/16 at 18:31; Status DC Trazodone HCl (Desyrel) 100 mg QHS PO ; Start 11/13/16 at 21:00; Stop 11/13/16 at 21:00; Status DC Olanzapine (ZyPREXA ZYDIS) 2.5 mg PRN Q2HR PRN PO PSYCHOSIS Last administered on 11/14/16 20:11; Start 11/13/16 at 12:45 Mirtazapine (Remeron) 7.5 mg QHS PO ; Start 11/13/16 at 21:00; Stop 11/13/16 at 21:00; Status DC Trazodone HCl (Desyrel) 500 mg QHS PO Last administered on 11/16/16 19:54; Start 11/13/16 at 21:00 Potassium Chloride (Klor-Con) 40 meq 1X ONCE PO Last administered on 20:06; Start 11/13/16 at 20:00; Stop 11/13/16 at 20:01; Status DC Divalproex Sodium (Depakote Er) 2,000 mg QHS PO ; Start 11/17/16 at 21:00 Divalproex Sodium (Depakote Er) 2,000 mg QHS PO ; Start 11/16/16 at 21:00; Stop 11/16/16 at 21:00; Status DC Divalproex Sodium (Depakote Sprinkles) 500 mg HS PO Last administered on 21:43; Start 11/16/16 at 21:45; Stop 11/16/16 at 22:20; Status DC Quetiapine Fumarate (SEROquel) 12.5 mg BID PO ; Start 11/17/16 at 21:00; Stop at 21:00; Status DC Quetiapine Fumarate (SEROquel) 12.5 mg BID PO ; Start 11/17/16 at 21:00 Active Scripts Active Reported Trazodone Hcl 100 Mg Tablet 1 Tab PO QHS Depakote Sprinkle (Divalproex Sodium) 125 Mg Cap.sprink 500 Mg PO BID Divalproex Sodium Er (Divalproex Sodium) 500 Mg Tab.er.24h 1,000 Mg PO DAILY Thiamine Hcl 100 Mg Tablet 100 Mg PO DAILY Folic Acid 1 Mg Tablet 1 Tab PO DAILY Thera-M (Multivits,Th W-Fe,Other Min) 1 Each Tablet 1 Each PO DAILY Pantoprazole Sodium 40 Mg Tablet.dr 1 Tab PO BID Lactulose 10 Gm/15 Ml Solution 30 Ml PO BID Atrovent Hfa (Ipratropium [place]) 12.9 Gm Hfa.aer.ad 2 Puff IH QID Guaifenesin 1,200 Mg Tab.er.12h 1,200 Mg PO Q12HR Vasotec (Enalapril Maleate) 20 Mg Tablet 10 Mg PO BID Coreg (Carvedilol) 12.5 Mg Tablet 12.5 Mg PO BIDWMEALS Norvasc (Amlodipine Besylate) 10 Mg Tablet 1 Tab PO DAILY Ventolin Hfa Inhaler (Albuterol Sulfate) 18 Gm Hfa.aer.ad 2 Puff IH PRN Q4HRS PRN Ventolin Hfa Inhaler (Albuterol Sulfate) 18 Gm Hfa.aer.ad 2 Puff IH Q4HRS Diagnosis: Problems: (1) Anxiety disorder (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
--- NOTE | 2016-11-17 20:27 | EEG ---
DATE OF SERVICE: EEG REPORT This is a 65-year-old right-handed male, was referred for an EEG to rule out central nervous system pathology or seizure. The patient was not sleep deprived. The patient was not sedated. The EEG obtained with the patient in the awake state, characterized by slowing of the posterior dominant rhythm at 6-7 cycles per second with amplitude of 25-35 microvolts. It was bilaterally symmetric without attenuation with eye opening. The background shows diffuse slowing of theta activities at frequency of 5-6 cycles per second with amplitude of 25-35 microvolts. The patient achieved stage 2 sleep, characterized by slowing of the posterior dominant rhythm and attenuation of the amplitudes. Burst of generalized slowing of theta activities at frequency of 5-6 cycles per second intermixed with high-voltage delta activities at frequency of 3 cycles per second were also seen during the drowsy records. Photic stimulation produced no driving responses and hyperventilation was not performed. IMPRESSION: 1. This is a moderately abnormal EEG because of slowing of the posterior dominant rhythm. 2. Diffuse slowing of the background activities. These findings are suggestive of moderately diffuse cerebral dysfunction. No epileptiform activities were seen. The lack of epileptiform discharges does not always rule out seizure. Therefore, clinical correlation is advised. M Osvaldo MADISON MD DR: CECILE/eyal JOB#: [id number] / [id number]
[2016-11-17] MEDS: traZODone 100 MG TABLET. PO SCH (20:33)
[2016-11-17] MEDS: DIVALPROEX ER 500 MG TAB.ER.24H PO SCH (20:39)
[2016-11-17] MEDS ORDERED: QUEtiapine 25 MG TABLET. PO SCH (21:00)
[2016-11-18] MEDS: IPRATROPIUM BROMIDE 0.5 MG/2.5 ML NEBU. NEB SCH ×4 (05:15→20:35)
[2016-11-18 05:47] VITALS: BP 128/82
--- NOTE | 2016-11-18 06:59 | PN ---
DATE: 11/16/2016 PSYCHIATRIC PROGRESS NOTE This is a late entry 11/16/2016, covers elements not covered in my initial note of 11/16/2016. SUBJECTIVE: Met with the patient evening of 11/16/2016. Per nursing report, the patient gets agitated easily, somewhat impulsive. He is agitated over a magazine and then starts talking about wanting heroin and cocaine, some of this seems to be grandiose statements rather than anything in reality, especially according to the . REVIEW OF SYSTEMS: Complains of pain in right shoulder. Staff had given him anti-inflammatory medications. He is wanting codeine, cursing at staff at one point. No CV, , pulmonary, eye, ENT system symptoms on review. MENTAL STATUS EXAM: Oriented to himself and situation. Speech is coherent, abstraction fair, computation impaired, language function intact, attention span short. Mood and affect remain somewhat irritable. He is somewhat sarcastic in his presentations, dismissive. LABORATORY DATA: Reviewed. No active suicidal or homicidal ideation. IMPRESSION: Unchanged from initial note. PLAN: The patient is on Depakote Sprinkles 500 mg b.i.d., Depakote ER 1000 mg at bedtime. We will consolidate this to Depakote ER 2000 mg at bedtime. Check CBC, CMP, valproic acid level, ammonia level in 3 days. Maintain the rest of his psychotropics including trazodone, Seroquel along with Zyprexa p.r.n. CHALINO GUTIERRES MD DR: JACK/eyal JOB#: [id number] / [id number]
[2016-11-18] MEDS: PANTOPRAZOLE 40 MG TABLET. PO SCH ×2 (08:02→19:57)
[2016-11-18] MEDS: LACTULOSE 20 GM/30 ML SOLUTION. PO SCH ×2 (08:02→19:55)
[2016-11-18] MEDS: FOLIC ACID 1 MG TABLET PO SCH (08:02)
[2016-11-18] MEDS: QUEtiapine 25 MG TABLET. PO SCH ×2 (08:03→19:57)
[2016-11-18] MEDS: MULTIVITAMIN with MINERAL TABLET. PO SCH (08:03)
[2016-11-18] MEDS: amLODIPine BESYLATE 10 MG TABLET PO SCH (08:03)
[2016-11-18] MEDS: LISINOPRIL 20 MG TABLET PO SCH ×2 (08:03→19:57)
[2016-11-18] MEDS: CARVEDILOL 12.5 MG TABLET PO SCH ×2 (08:03→16:04)
[2016-11-18] MEDS: THIAMINE 100 MG TABLET. PO SCH (08:03)
[2016-11-18] MEDS: METHYL SALICYLATE/MENTHOL TOPICAL OINTMENT 29GM TUBE. TP PRN (14:39)
[2016-11-18 16:00] VITALS: BP 117/75
--- NOTE | 2016-11-18 16:15 | RAD ---
Chest radiograph 11/18/2016 at 1412 hours Indication: Cough with green sputum Comparison: None available Technique: Single frontal view of the chest is provided. Findings: Cardiomediastinal silhouette is within normal limits. No pleural effusions, pulmonary vascular congestion or pneumothorax. The lungs are clear. Rounded calcific density is noted projecting over the anterior fifth costochondral junction, likely secondary to costochondral degenerative calcification. Impression: No acute cardiopulmonary process.
--- NOTE | 2016-11-18 19:45 | PDOC ---
Exam Ashvin Demential Exam: Ashvin Note: Please also refer to the separate dictated note~for this date of service dictated separately.~Patient seen individually. Discussed the patient with Nursing staff reviewed the chart.~Reviewed interim history and current functioning. Reviewed vital signs,~Labs/ Radiology~and current medications noted below. Continue current treatment with the changes noted in the dictated addendum note Assessment: Vital Signs: Vital Signs Date Time Temp Pulse Resp B/P (MAP) Pulse Ox O2 Delivery O2 Flow Rate FiO2 11/18/16 16:31 97 Room Air 11/18/16 16:04 79 117/75 11/18/16 16:00 97.5 20 I&O Intake and Output 11/18/16 07:00 Intake Total 1320 ml Balance 1320 ml Intake Oral 1320 ml # Voids 2 Current Medications: Meds: Current Medications Acetaminophen (Tylenol) 650 mg PRN Q6HRS PRN PO PAIN / TEMP Last administered on 11/17/16 11:07; Start 11/11/16 at 18:30 Multi-Ingredient Ointment (Analgesic [place]) 1 melani PRN QID PRN TP MUSCLE PAIN Last administered on 11/18/16 14:39; Start 11/11/16 at 18:30 Al Hydroxide/Mg Hydroxide (Mylanta Plus Xs) 15 ml PRN AFTMEALHC PRN PO DYSPEPSIA; Start 11/11/16 at 18:30 Magnesium Hydroxide (Milk Of Magnesia) 2,400 mg PRN QHS PRN PO CONSTIPATION; Start 11/11/16 at 18:30 Albuterol Sulfate (Ventolin Hfa) 2 puff PRN Q4HRS PRN IH FOR ASTHMA; Start 01/18 at 18:45; Stop 11/11/16 at 19:52; Status DC Albuterol Sulfate (Ventolin Hfa) 2 puff Q4HRS IH ; Start 11/11/16 at 20:00; Stop 11/11/16 at 20:00; Status DC Amlodipine Besylate (Norvasc) 10 mg DAILY PO Last administered on 11/18/16 08: 03; Start 11/12/16 at 09:00 Carvedilol (Coreg) 12.5 mg BIDWMEALS PO Last administered on 11/18/16 16:04; Start 11/12/16 at 08:00 Folic Acid (Folic Acid) 1 mg DAILY PO Last administered on 11/18/16 08:02; Start 11/12/16 at 09:00 Ipratropium [place] (Atrovent Hfa) 2 puff QID IH ; Start 11/11/16 at 21:00; Stop 11/11/16 at 21:00; Status DC Pantoprazole Sodium (Protonix) 40 mg BID PO Last administered on 11/18/16 08: 02; Start 11/11/16 at 21:00 Thiamine HCl (Vitamin B-1) 100 mg DAILY PO Last administered on 11/18/16 08:03 ; Start 11/12/16 at 09:00 Lisinopril (Prinivil) 20 mg BID PO Last administered on 11/18/16 08:03; Start 11/11/16 at 21:00 Guaifenesin (Mucinex Er) 1,200 mg Q12HR PO Last administered on 11/18/16 08:03 ; Start 11/11/16 at 21:00 Lactulose 20 gm BID PO Last administered on 11/18/16 08:02; Start 11/11/16 at 21:00 Multivitamins/ Calcium (Thera-M Plus) 1 tab DAILY PO Last administered on 08:03; Start 11/12/16 at 09:00 Divalproex Sodium (Depakote Sprinkles) 500 mg BID PO Last administered on 09:55; Start 11/11/16 at 21:00; Stop 11/16/16 at 18:12; Status DC Divalproex Sodium (Depakote Er) 1,000 mg DAILY PO Last administered on 09:58; Start 11/12/16 at 09:00; Stop 11/16/16 at 18:12; Status DC Ipratropium [place] (Atrovent) 0.5 mg RTQID NEB Last administered on 11/18/16 16:31; Start 11/11/16 at 20:00 Albuterol Sulfate (Ventolin) 2.5 mg PRN Q4HRS PRN NEB SHORTNESS OF BREATH; Start 11/11/16 at 19:45 Quetiapine Fumarate (SEROquel) 12.5 mg DAILY PO Last administered on 11/17/16 08:04; Start 11/13/16 at 09:00; Stop 11/17/16 at 18:31; Status DC Trazodone HCl (Desyrel) 100 mg QHS PO ; Start 11/13/16 at 21:00; Stop 11/13/16 at 21:00; Status DC Olanzapine (ZyPREXA ZYDIS) 2.5 mg PRN Q2HR PRN PO PSYCHOSIS Last administered on 11/18/16 15:33; Start 11/13/16 at 12:45 Mirtazapine (Remeron) 7.5 mg QHS PO ; Start 11/13/16 at 21:00; Stop 11/13/16 at 21:00; Status DC Trazodone HCl (Desyrel) 500 mg QHS PO Last administered on 11/17/16 20:33; Start 11/13/16 at 21:00 Potassium Chloride (Klor-Con) 40 meq 1X ONCE PO Last administered on 20:06; Start 11/13/16 at 20:00; Stop 11/13/16 at 20:01; Status DC Divalproex Sodium (Depakote Er) 2,000 mg QHS PO Last administered on 11/17/16 20:39; Start 11/17/16 at 21:00 Divalproex Sodium (Depakote Er) 2,000 mg QHS PO ; Start 11/16/16 at 21:00; Stop 11/16/16 at 21:00; Status DC Divalproex Sodium (Depakote Sprinkles) 500 mg HS PO Last administered on 21:43; Start 11/16/16 at 21:45; Stop 11/16/16 at 22:20; Status DC Quetiapine Fumarate (SEROquel) 12.5 mg BID PO ; Start 11/17/16 at 21:00; Stop at 21:00; Status DC Quetiapine Fumarate (SEROquel) 12.5 mg BID PO Last administered on 11/18/16 08 :03; Start 11/17/16 at 21:00 Active Scripts Active Reported Trazodone Hcl 100 Mg Tablet 1 Tab PO QHS Depakote Sprinkle (Divalproex Sodium) 125 Mg Cap.sprink 500 Mg PO BID Divalproex Sodium Er (Divalproex Sodium) 500 Mg Tab.er.24h 1,000 Mg PO DAILY Thiamine Hcl 100 Mg Tablet 100 Mg PO DAILY Folic Acid 1 Mg Tablet 1 Tab PO DAILY Thera-M (Multivits,Th W-Fe,Other Min) 1 Each Tablet 1 Each PO DAILY Pantoprazole Sodium 40 Mg Tablet.dr 1 Tab PO BID Lactulose 10 Gm/15 Ml Solution 30 Ml PO BID Atrovent Hfa (Ipratropium [place]) 12.9 Gm Hfa.aer.ad 2 Puff IH QID Guaifenesin 1,200 Mg Tab.er.12h 1,200 Mg PO Q12HR Vasotec (Enalapril Maleate) 20 Mg Tablet 10 Mg PO BID Coreg (Carvedilol) 12.5 Mg Tablet 12.5 Mg PO BIDWMEALS Norvasc (Amlodipine Besylate) 10 Mg Tablet 1 Tab PO DAILY Ventolin Hfa Inhaler (Albuterol Sulfate) 18 Gm Hfa.aer.ad 2 Puff IH PRN Q4HRS PRN Ventolin Hfa Inhaler (Albuterol Sulfate) 18 Gm Hfa.aer.ad 2 Puff IH Q4HRS Diagnosis: Problems: (1) Anxiety disorder (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
[2016-11-18] MEDS: DIVALPROEX ER 500 MG TAB.ER.24H PO SCH (19:56)
[2016-11-18] MEDS: traZODone 100 MG TABLET. PO SCH (19:58)
--- NOTE | 2016-11-19 02:32 | PN ---
DATE: 11/17/2016 This late entry 11/17/2016 covers elements not covered in my initial note. I met with the patient evening of 11/17/2016. The patient remains somewhat dismissive of the reasons for his hospitalization. He told the nursing staff that he was "here to play games and was tricked into coming here by his and specialties operator." He slept 5-3/4 hours the previous evening. Often makes cursory remarks to wanting drugs. Reportedly, hid Daniel's glue bottle in his pocket and said he wanted to sniff it and wanted to snort. The ____ minute was being offered to him by nursing staff. Perhaps some of this is humerous per nursing report, but reflective of at least his perception of past drug abuse. REVIEW OF SYSTEMS: No CV, , pulmonary, eye, ENT system symptoms on review. MENTAL STATUS EXAM: Oriented to himself and situation. Speech is coherent, somewhat irritable and labile at times as I met with him individually. Insight limited, judgment marginal, language function intact. Mood and affect somewhat labile. LABORATORY DATA: Reviewed. IMPRESSION: Unchanged from initial note. PLAN: We will add Seroquel 12.5 mg at bedtime, continue 12.5 mg in the morning. Seroquel should help as an antianxiety, mood stabilizer and atypical antipsychotic. Maintain Depakote, trazodone along with Zyprexa. Reviewed drug interactions, risk/benefit ratio favors no further change. CHALINO GUTIERRES MD DR: JACK/eyal JOB#: [id number] / [id number]
[2016-11-19] MEDS: IPRATROPIUM BROMIDE 0.5 MG/2.5 ML NEBU. NEB SCH ×4 (05:22→20:18)
[2016-11-19 06:01] VITALS: BP 152/79
[2016-11-19] MEDS: QUEtiapine 25 MG TABLET. PO SCH ×2 (07:22→19:54)
[2016-11-19] MEDS: LACTULOSE 20 GM/30 ML SOLUTION. PO SCH ×2 (07:22→19:54)
[2016-11-19] MEDS: CARVEDILOL 12.5 MG TABLET PO SCH ×2 (07:22→17:00)
[2016-11-19] MEDS: FOLIC ACID 1 MG TABLET PO SCH (07:22)
[2016-11-19] MEDS: MULTIVITAMIN with MINERAL TABLET. PO SCH (07:22)
[2016-11-19] MEDS: amLODIPine BESYLATE 10 MG TABLET PO SCH (07:23)
[2016-11-19] MEDS: THIAMINE 100 MG TABLET. PO SCH (07:23)
[2016-11-19] MEDS: PANTOPRAZOLE 40 MG TABLET. PO SCH ×2 (07:23→19:54)
[2016-11-19] MEDS: LISINOPRIL 20 MG TABLET PO SCH ×2 (07:23→19:53)
[2016-11-19] MEDS: METHYL SALICYLATE/MENTHOL TOPICAL OINTMENT 29GM TUBE. TP PRN (09:25)
[2016-11-19 16:30] VITALS: BP 108/72
--- NOTE | 2016-11-19 19:50 | PDOC ---
Exam Ashvin Demential Exam: Ashvin Note: Please also refer to the separate dictated note~for this date of service dictated separately.~Patient seen individually. Discussed the patient with Nursing staff reviewed the chart.~Reviewed interim history and current functioning. Reviewed vital signs,~Labs/ Radiology~and current medications noted below. Continue current treatment with the changes noted in the dictated addendum note Assessment: Vital Signs: Vital Signs Date Time Temp Pulse Resp B/P (MAP) Pulse Ox O2 Delivery O2 Flow Rate FiO2 11/19/16 17:00 87 108/72 11/19/16 16:30 98.9 24 99 11/19/16 15:35 Room Air I&O Intake and Output 11/19/16 07:00 Intake Total 960 ml Balance 960 ml Intake Oral 960 ml # Voids 1 # Bowel Movements 1 Current Medications: Meds: Current Medications Acetaminophen (Tylenol) 650 mg PRN Q6HRS PRN PO PAIN / TEMP Last administered on 11/17/16 11:07; Start 11/11/16 at 18:30 Multi-Ingredient Ointment (Analgesic [place]) 1 melani PRN QID PRN TP MUSCLE PAIN Last administered on 11/19/16 09:25; Start 11/11/16 at 18:30 Al Hydroxide/Mg Hydroxide (Mylanta Plus Xs) 15 ml PRN AFTMEALHC PRN PO DYSPEPSIA; Start 11/11/16 at 18:30 Magnesium Hydroxide (Milk Of Magnesia) 2,400 mg PRN QHS PRN PO CONSTIPATION; Start 11/11/16 at 18:30 Albuterol Sulfate (Ventolin Hfa) 2 puff PRN Q4HRS PRN IH FOR ASTHMA; Start 01/18 at 18:45; Stop 11/11/16 at 19:52; Status DC Albuterol Sulfate (Ventolin Hfa) 2 puff Q4HRS IH ; Start 11/11/16 at 20:00; Stop 11/11/16 at 20:00; Status DC Amlodipine Besylate (Norvasc) 10 mg DAILY PO Last administered on 11/19/16 07: 23; Start 11/12/16 at 09:00 Carvedilol (Coreg) 12.5 mg BIDWMEALS PO Last administered on 11/19/16 17:00; Start 11/12/16 at 08:00 Folic Acid (Folic Acid) 1 mg DAILY PO Last administered on 11/19/16 07:22; Start 11/12/16 at 09:00 Ipratropium [place] (Atrovent Hfa) 2 puff QID IH ; Start 11/11/16 at 21:00; Stop 11/11/16 at 21:00; Status DC Pantoprazole Sodium (Protonix) 40 mg BID PO Last administered on 11/19/16 07: 23; Start 11/11/16 at 21:00 Thiamine HCl (Vitamin B-1) 100 mg DAILY PO Last administered on 11/19/16 07:23 ; Start 11/12/16 at 09:00 Lisinopril (Prinivil) 20 mg BID PO Last administered on 11/19/16 07:23; Start 11/11/16 at 21:00 Guaifenesin (Mucinex Er) 1,200 mg Q12HR PO Last administered on 11/19/16 07:23 ; Start 11/11/16 at 21:00 Lactulose 20 gm BID PO Last administered on 11/19/16 07:22; Start 11/11/16 at 21:00 Multivitamins/ Calcium (Thera-M Plus) 1 tab DAILY PO Last administered on 07:22; Start 11/12/16 at 09:00 Divalproex Sodium (Depakote Sprinkles) 500 mg BID PO Last administered on 09:55; Start 11/11/16 at 21:00; Stop 11/16/16 at 18:12; Status DC Divalproex Sodium (Depakote Er) 1,000 mg DAILY PO Last administered on 09:58; Start 11/12/16 at 09:00; Stop 11/16/16 at 18:12; Status DC Ipratropium [place] (Atrovent) 0.5 mg RTQID NEB Last administered on 11/19/16 15:34; Start 11/11/16 at 20:00 Albuterol Sulfate (Ventolin) 2.5 mg PRN Q4HRS PRN NEB SHORTNESS OF BREATH; Start 11/11/16 at 19:45 Quetiapine Fumarate (SEROquel) 12.5 mg DAILY PO Last administered on 11/17/16 08:04; Start 11/13/16 at 09:00; Stop 11/17/16 at 18:31; Status DC Trazodone HCl (Desyrel) 100 mg QHS PO ; Start 11/13/16 at 21:00; Stop 11/13/16 at 21:00; Status DC Olanzapine (ZyPREXA ZYDIS) 2.5 mg PRN Q2HR PRN PO PSYCHOSIS Last administered on 11/19/16 09:24; Start 11/13/16 at 12:45 Mirtazapine (Remeron) 7.5 mg QHS PO ; Start 11/13/16 at 21:00; Stop 11/13/16 at 21:00; Status DC Trazodone HCl (Desyrel) 500 mg QHS PO Last administered on 11/18/16 19:58; Start 11/13/16 at 21:00 Potassium Chloride (Klor-Con) 40 meq 1X ONCE PO Last administered on 20:06; Start 11/13/16 at 20:00; Stop 11/13/16 at 20:01; Status DC Divalproex Sodium (Depakote Er) 2,000 mg QHS PO Last administered on 11/18/16 19:56; Start 11/17/16 at 21:00 Divalproex Sodium (Depakote Er) 2,000 mg QHS PO ; Start 11/16/16 at 21:00; Stop 11/16/16 at 21:00; Status DC Divalproex Sodium (Depakote Sprinkles) 500 mg HS PO Last administered on 21:43; Start 11/16/16 at 21:45; Stop 11/16/16 at 22:20; Status DC Quetiapine Fumarate (SEROquel) 12.5 mg BID PO ; Start 11/17/16 at 21:00; Stop at 21:00; Status DC Quetiapine Fumarate (SEROquel) 12.5 mg BID PO Last administered on 11/19/16 07 :22; Start 11/17/16 at 21:00 Active Scripts Active Reported Trazodone Hcl 100 Mg Tablet 1 Tab PO QHS Depakote Sprinkle (Divalproex Sodium) 125 Mg Cap.sprink 500 Mg PO BID Divalproex Sodium Er (Divalproex Sodium) 500 Mg Tab.er.24h 1,000 Mg PO DAILY Thiamine Hcl 100 Mg Tablet 100 Mg PO DAILY Folic Acid 1 Mg Tablet 1 Tab PO DAILY Thera-M (Multivits,Th W-Fe,Other Min) 1 Each Tablet 1 Each PO DAILY Pantoprazole Sodium 40 Mg Tablet.dr 1 Tab PO BID Lactulose 10 Gm/15 Ml Solution 30 Ml PO BID Atrovent Hfa (Ipratropium [place]) 12.9 Gm Hfa.aer.ad 2 Puff IH QID Guaifenesin 1,200 Mg Tab.er.12h 1,200 Mg PO Q12HR Vasotec (Enalapril Maleate) 20 Mg Tablet 10 Mg PO BID Coreg (Carvedilol) 12.5 Mg Tablet 12.5 Mg PO BIDWMEALS Norvasc (Amlodipine Besylate) 10 Mg Tablet 1 Tab PO DAILY Ventolin Hfa Inhaler (Albuterol Sulfate) 18 Gm Hfa.aer.ad 2 Puff IH PRN Q4HRS PRN Ventolin Hfa Inhaler (Albuterol Sulfate) 18 Gm Hfa.aer.ad 2 Puff IH Q4HRS Diagnosis: Problems: (1) Anxiety disorder (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
[2016-11-19] MEDS: DIVALPROEX ER 500 MG TAB.ER.24H PO SCH (19:53)
[2016-11-19] MEDS: traZODone 100 MG TABLET. PO SCH (19:53)
--- NOTE | 2016-11-19 23:34 | PN ---
DATE: 11/18/2016 SUBJECTIVE: The patient denies any new medical or neurological complaints. It was reported that the patient has been irritable and agitated at times. He has not had any recurrence of seizure. A recent EEG is negative for seizure activities. He is doing well and he walks independently using a walker. He denies suicidal ideation. PHYSICAL EXAMINATION: VITAL SIGNS: Blood pressure 104/64, respiratory rate 20, pulse is 87 and regular, temperature 98.7, oxygen saturation 92% on room air. HEENT: Normocephalic, atraumatic, otherwise unremarkable. NECK: Supple. Negative for carotid bruit, lymphadenopathy or thyromegaly. LUNGS: Clear to A and P. CARDIOVASCULAR: Regular rate and rhythm, normal S1 and S2. ABDOMEN: Soft. No palpable mass, organomegaly, or tenderness. EXTREMITIES: Negative for cyanosis, clubbing, or pitting edema. NEUROLOGICAL EXAM: Mental Status: The patient is alert and oriented to place and time. Speech is fluent. There is no language dysfunction. Memory, judgment, abstract thinking are fair. The patient denies hallucination or delusion. Cranial nerves are grossly intact. Motor examination: No focal muscle ____was seen. The tone was normal. The strength was 4/5 throughout. Sensory examination revealed normal pinprick and light touch senses. Deep tendon reflexes were symmetric and hypoactive with absent Achilles responses. Gait: The patient uses a walker sometimes for ambulation. IMPRESSION: 1. History of seizure with negative recent EEG for active seizure. 2. Longstanding history of alcoholism. 3. Multiple psychiatric problems include depression, anxiety and paranoia. 4. Multiple medical problems include hypertension, hyperlipidemia, gastroesophageal reflux disease. RECOMMENDATIONS: Continue with current psychiatric and medical care. M Osvaldo MADISON MD DR: CECILE/eyal JOB#: [id number] / [id number]
--- NOTE | 2016-11-20 01:29 | PN ---
DATE: 11/18/2016 This is a late entry 11/18/2016, covers elements not covered in my initial note of 11/18/2016. SUBJECTIVE: The patient was staffed at treatment team meeting with the entire team morning of 11/18/2016, seen individually evening of 11/18/2016. He slept 5-1/2 hours previous evening. He does have short term memory deficits, somewhat dismissive of any problems, talking about or making humor as he sees it, but using drugs and illegal substances. REVIEW OF SYSTEMS: No CV, , pulmonary, eye, ENT system symptoms on review. MENTAL STATUS EXAM: Oriented to himself and situation. Speech is coherent, abstraction fair, computation impaired, language function intact, attention span short. Mood and affect, lability is improved. LABORATORY DATA: Reviewed. IMPRESSION: Unchanged from initial note. PLAN: Continue psychotropics mentioned in my initial note, reviewed drug interactions, risk/benefit ratio favors no further change at this time. CHALINO GUTIERRES MD DR: JACK/eyal JOB#: [id number] / [id number]
[2016-11-20] MEDS: IPRATROPIUM BROMIDE 0.5 MG/2.5 ML NEBU. NEB SCH ×4 (05:13→19:52)
[2016-11-20 06:02] VITALS: BP 123/75
[2016-11-20 06:50] LABS: ALBUMIN/GLOBULIN RATIO 0.9 (1.0-1.7); BLOOD UREA NITROGEN 15 mg/dL (8-26); CALCIUM 9.1 mg/dL (8.5-10.1); GLUCOSE 97 mg/dL (70-99); TOTAL PROTEIN 6.3 g/dL (6.4-8.2)
[2016-11-20 06:51] LABS: ALK PHOS 61 U/L (46-116); ALT (SGPT) 10 U/L (16-63); ANION GAP 4 (6-14); AST (SGOT) 8 U/L (15-37); BUN/CREATININE RATIO 17 (6-20); CARBON DIOXIDE 31 mmol/L (21-32); CHLORIDE 109 mmol/L (98-107); CREATININE 0.9 mg/dL (0.7-1.3); GFR 84.7; POTASSIUM 4.5 mmol/L (3.5-5.1); SODIUM 144 mmol/L (136-145); TOTAL BILIRUBIN 0.2 mg/dL (0.2-1.0); VAL ACID 106 mcg/mL (50-100)
[2016-11-20 06:54] LABS: BASO # 0.1 x10^3/uL (0.0-0.2); BASO % 1 % (0-3); EOS # 0.3 x10^3/uL (0.0-0.7); EOS % 3 % (0-3); HEMATOCRIT 40.6 % (39.0-53.0); HEMOGLOBIN 13.7 g/dL (13.0-17.5); LYMPH # 1.6 x10^3/uL (1.0-4.8); LYMPH % 17 % (24-48); MEAN CORPUSCULAR HEMOGLOBIN 31 pg (25-35); MEAN CORPUSCULAR HGB CONC 34 g/dL (31-37); MEAN CORPUSCULAR VOLUME 91 fL (79-100); MONO # 1.3 x10^3/uL (0.0-1.1); MONO % 13 % (0-9); NEUT # 6.4 x10^3uL (1.8-7.7); NEUT % 66 % (31-73); PLATELET COUNT 253 x10^3/uL (140-400); RED BLOOD COUNT 4.46 x10^6/uL (4.30-5.70); RED CELL DISTRIBUTION WIDTH 14.6 % (11.5-14.5); WHITE BLOOD COUNT 9.7 x10^3/uL (4.0-11.0)
[2016-11-20] MEDS: LISINOPRIL 20 MG TABLET PO SCH ×2 (07:17→20:08)
[2016-11-20] MEDS: LACTULOSE 20 GM/30 ML SOLUTION. PO SCH ×2 (07:17→20:08)
[2016-11-20] MEDS: THIAMINE 100 MG TABLET. PO SCH (07:17)
[2016-11-20] MEDS: PANTOPRAZOLE 40 MG TABLET. PO SCH ×2 (07:18→20:08)
[2016-11-20] MEDS: amLODIPine BESYLATE 10 MG TABLET PO SCH (07:18)
[2016-11-20] MEDS: FOLIC ACID 1 MG TABLET PO SCH (07:18)
[2016-11-20] MEDS: CARVEDILOL 12.5 MG TABLET PO SCH ×2 (07:18→17:00)
[2016-11-20] MEDS: QUEtiapine 25 MG TABLET. PO SCH ×2 (07:18→20:10)
[2016-11-20] MEDS: MULTIVITAMIN with MINERAL TABLET. PO SCH (07:18)
--- NOTE | 2016-11-20 07:36 | EKG ---
[address] [address] Test Date: 2016-11-13 Test Time: 04:05:01 Pat Name: LAUREN CROOKS Department: Room: [address] [place] [address] Gender: Employee Wellness/Fitness Coordinator: : 1950 Requested By: CHALINO GUTIERRES Order Number: [id number] Reading MD: Morris Michael Measurements Intervals [place] Rate: P: [place]: QRS: QRSD: T: QT: QTc: Interpretive Statements SR PVC Electronically Signed On 11-29-2016 10:17:25 CDT by Morris Michael
[2016-11-20] MEDS: METHYL SALICYLATE/MENTHOL TOPICAL OINTMENT 29GM TUBE. TP PRN (13:45)
[2016-11-20 15:46] VITALS: BP 97/65
--- NOTE | 2016-11-20 18:50 | PN ---
DATE: 11/19/2016 PSYCHIATRIC PROGRESS NOTE This late entry, 11/19/2016, covers elements not covered in my initial note of 11/19/2016. SUBJECTIVE: I met with the patient the evening of 11/19/2016 for this assessment. Per nursing report, he has done better, appears more lucid and less labile. REVIEW OF SYSTEMS: No CV, , pulmonary, eye system symptoms on review. MENTAL STATUS EXAMINATION: Oriented to himself and situation. Speech coherent, has some latency. Abstraction fair, computation impaired, memory is impaired, language function intact. Mood and affect still somewhat anxious, labile, but improved. LABORATORY DATA: Reviewed. IMPRESSION: Unchanged from initial note. PLAN: Continue current psychotropics. Check a valproic acid level the morning of 11/20/2016. Maintain therapeutic level and adjust further as clinically indicated. MAN Ruth GUTIERRES MD DR: JACK/eyal JOB#: [id number] / [id number]
[2016-11-20] MEDS: DIVALPROEX ER 250 MG TAB.ER.24H. PO SCH (20:09)
[2016-11-20] MEDS: traZODone 100 MG TABLET. PO SCH (20:09)
[2016-11-20] MEDS: DIVALPROEX ER 500 MG TAB.ER.24H PO SCH (20:09)
--- NOTE | 2016-11-20 23:15 | PDOC ---
Exam Ashvin Demential Exam: Ashvin Note: Please also refer to the separate dictated note~for this date of service dictated separately.~Patient seen individually. Discussed the patient with Nursing staff reviewed the chart.~Reviewed interim history and current functioning. Reviewed vital signs,~Labs/ Radiology~and current medications noted below. Continue current treatment with the changes noted in the dictated addendum note Assessment: Vital Signs: Vital Signs Date Time Temp Pulse Resp B/P (MAP) Pulse Ox O2 Delivery O2 Flow Rate FiO2 11/20/16 20:08 82 97/65 11/20/16 19:54 98 Room Air 11/20/16 15:46 98.2 20 I&O Intake and Output 11/20/16 07:00 Intake Total 1260 ml Balance 1260 ml Intake Oral 1260 ml # Voids 1 Labs: Laboratory Tests Test 11/20/16 06:23 White Blood Count 9.7 x10^3/uL (4.0-11.0) Red Blood Count 4.46 x10^6/uL (4.30-5.70) Hemoglobin 13.7 g/dL (13.0-17.5) Hematocrit 40.6 % (39.0-53.0) Mean Corpuscular Volume 91 fL (79-100) Mean Corpuscular Hemoglobin 31 pg (25-35) Mean Corpuscular Hemoglobin Concent 34 g/dL (31-37) Red Cell Distribution Width 14.6 % (11.5-14.5) H Platelet Count 253 x10^3/uL (140-400) Neutrophils (%) (Auto) 66 % (31-73) Lymphocytes (%) (Auto) 17 % (24-48) L Monocytes (%) (Auto) 13 % (0-9) H Eosinophils (%) (Auto) 3 % (0-3) Basophils (%) (Auto) 1 % (0-3) Neutrophils # (Auto) 6.4 x10^3uL (1.8-7.7) Lymphocytes # (Auto) 1.6 x10^3/uL (1.0-4.8) Monocytes # (Auto) 1.3 x10^3/uL (0.0-1.1) H Eosinophils # (Auto) 0.3 x10^3/uL (0.0-0.7) Basophils # (Auto) 0.1 x10^3/uL (0.0-0.2) Sodium Level 144 mmol/L (136-145) Potassium Level 4.5 mmol/L (3.5-5.1) Chloride Level 109 mmol/L (98-107) H Carbon Dioxide Level 31 mmol/L (21-32) Anion Gap 4 (6-14) L Blood Urea Nitrogen 15 mg/dL (8-26) Creatinine 0.9 mg/dL (0.7-1.3) Estimated GFR (Cockcroft-Gault) 84.7 BUN/Creatinine Ratio 17 (6-20) Glucose Level 97 mg/dL (70-99) Calcium Level 9.1 mg/dL (8.5-10.1) Total Bilirubin 0.2 mg/dL (0.2-1.0) Aspartate Amino Transferase (AST) 8 U/L (15-37) L Alanine Aminotransferase (ALT) 10 U/L (16-63) L Alkaline Phosphatase 61 U/L (46-116) Total Protein 6.3 g/dL (6.4-8.2) L Albumin 3.0 g/dL (3.4-5.0) L Albumin/Globulin Ratio 0.9 (1.0-1.7) L Valproic Acid Level 106 mcg/mL (50-100) H Valproic Acid Last Dose Date 11/19/16 Valproic Acid Last Dose Time 2100 Current Medications: Meds: Current Medications Acetaminophen (Tylenol) 650 mg PRN Q6HRS PRN PO PAIN / TEMP Last administered on 11/17/16t 11:07; Start 11/11/16 at 18:30 Multi-Ingredient Ointment (Analgesic [place]) 1 melani PRN QID PRN TP MUSCLE PAIN Last administered on 11/20/16t 13:45; Start 11/11/16 at 18:30 Al Hydroxide/Mg Hydroxide (Mylanta Plus Xs) 15 ml PRN AFTMEALHC PRN PO DYSPEPSIA; Start 11/11/16 at 18:30 Magnesium Hydroxide (Milk Of Magnesia) 2,400 mg PRN QHS PRN PO CONSTIPATION; Start 11/11/16 at 18:30 Albuterol Sulfate (Ventolin Hfa) 2 puff PRN Q4HRS PRN IH FOR ASTHMA; Start 01/18 at 18:45; Stop 11/11/16 at 19:52; Status DC Albuterol Sulfate (Ventolin Hfa) 2 puff Q4HRS IH ; Start 11/11/16 at 20:00; Stop 11/11/16 at 20:00; Status DC Amlodipine Besylate (Norvasc) 10 mg DAILY PO Last administered on 11/20/16 07: 18; Start 11/12/16 at 09:00 Carvedilol (Coreg) 12.5 mg BIDWMEALS PO Last administered on 11/20/16 07:18; Start 11/12/16 at 08:00 Folic Acid (Folic Acid) 1 mg DAILY PO Last administered on 11/20/16 07:18; Start 11/12/16 at 09:00 Ipratropium [place] (Atrovent Hfa) 2 puff QID IH ; Start 11/11/16 at 21:00; Stop 11/11/16 at 21:00; Status DC Pantoprazole Sodium (Protonix) 40 mg BID PO Last administered on 11/20/16 20: 08; Start 11/11/16 at 21:00 Thiamine HCl (Vitamin B-1) 100 mg DAILY PO Last administered on 11/20/16 07:17 ; Start 11/12/16 at 09:00 Lisinopril (Prinivil) 20 mg BID PO Last administered on 11/20/16 07:17; Start 11/11/16 at 21:00 Guaifenesin (Mucinex Er) 1,200 mg Q12HR PO Last administered on 11/20/16 20:08 ; Start 11/11/16 at 21:00 Lactulose 20 gm BID PO Last administered on 11/20/16 20:08; Start 11/11/16 at 21:00 Multivitamins/ Calcium (Thera-M Plus) 1 tab DAILY PO Last administered on 07:18; Start 11/12/16 at 09:00 Divalproex Sodium (Depakote Sprinkles) 500 mg BID PO Last administered on 09:55; Start 11/11/16 at 21:00; Stop 11/16/16 at 18:12; Status DC Divalproex Sodium (Depakote Er) 1,000 mg DAILY PO Last administered on 09:58; Start 11/12/16 at 09:00; Stop 11/16/16 at 18:12; Status DC Ipratropium [place] (Atrovent) 0.5 mg RTQID NEB Last administered on 11/20/16 19:52; Start 11/11/16 at 20:00 Albuterol Sulfate (Ventolin) 2.5 mg PRN Q4HRS PRN NEB SHORTNESS OF BREATH; Start 11/11/16 at 19:45 Quetiapine Fumarate (SEROquel) 12.5 mg DAILY PO Last administered on 11/17/16 08:04; Start 11/13/16 at 09:00; Stop 11/17/16 at 18:31; Status DC Trazodone HCl (Desyrel) 100 mg QHS PO ; Start 11/13/16 at 21:00; Stop 11/13/16 at 21:00; Status DC Olanzapine (ZyPREXA ZYDIS) 2.5 mg PRN Q2HR PRN PO PSYCHOSIS Last administered on 11/19/16 09:24; Start 11/13/16 at 12:45 Mirtazapine (Remeron) 7.5 mg QHS PO ; Start 11/13/16 at 21:00; Stop 11/13/16 at 21:00; Status DC Trazodone HCl (Desyrel) 500 mg QHS PO Last administered on 11/20/16 20:09; Start 11/13/16 at 21:00 Potassium Chloride (Klor-Con) 40 meq 1X ONCE PO Last administered on 20:06; Start 11/13/16 at 20:00; Stop 11/13/16 at 20:01; Status DC Divalproex Sodium (Depakote Er) 2,000 mg QHS PO Last administered on 11/19/16 19:53; Start 11/17/16 at 21:00; Stop 11/20/16 at 07:25; Status DC Divalproex Sodium (Depakote Er) 2,000 mg QHS PO ; Start 11/16/16 at 21:00; Stop 11/16/16 at 21:00; Status DC Divalproex Sodium (Depakote Sprinkles) 500 mg HS PO Last administered on 21:43; Start 11/16/16 at 21:45; Stop 11/16/16 at 22:20; Status DC Quetiapine Fumarate (SEROquel) 12.5 mg BID PO ; Start 11/17/16 at 21:00; Stop at 21:00; Status DC Quetiapine Fumarate (SEROquel) 12.5 mg BID PO Last administered on 11/20/16 20 :10; Start 11/17/16 at 21:00 Divalproex Sodium (Depakote Er) 1,500 mg QHS PO Last administered on 11/20/16 20:09; Start 11/20/16 at 21:00 Divalproex Sodium (Depakote Er) 250 mg QHS PO Last administered on 11/20/16 20 :09; Start 11/20/16 at 21:00 Active Scripts Active Reported Trazodone Hcl 100 Mg Tablet 1 Tab PO QHS Depakote Sprinkle (Divalproex Sodium) 125 Mg Cap.sprink 500 Mg PO BID Divalproex Sodium Er (Divalproex Sodium) 500 Mg Tab.er.24h 1,000 Mg PO DAILY Thiamine Hcl 100 Mg Tablet 100 Mg PO DAILY Folic Acid 1 Mg Tablet 1 Tab PO DAILY Thera-M (Multivits, W-Fe,Other Min) 1 Each Tablet 1 Each PO DAILY Pantoprazole Sodium 40 Mg Tablet.dr 1 Tab PO BID Lactulose 10 Gm/15 Ml Solution 30 Ml PO BID Atrovent Hfa (Ipratropium [place]) 12.9 Gm Hfa.aer.ad 2 Puff IH QID Guaifenesin 1,200 Mg Tab.er.12h 1,200 Mg PO Q12HR Vasotec (Enalapril Maleate) 20 Mg Tablet 10 Mg PO BID Coreg (Carvedilol) 12.5 Mg Tablet 12.5 Mg PO BIDWMEALS Norvasc (Amlodipine Besylate) 10 Mg Tablet 1 Tab PO DAILY Ventolin Hfa Inhaler (Albuterol Sulfate) 18 Gm Hfa.aer.ad 2 Puff IH PRN Q4HRS PRN Ventolin Hfa Inhaler (Albuterol Sulfate) 18 Gm Hfa.aer.ad 2 Puff IH Q4HRS Diagnosis: Problems: (1) Anxiety disorder (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
[2016-11-21] MEDS: IPRATROPIUM BROMIDE 0.5 MG/2.5 ML NEBU. NEB SCH ×4 (05:05→19:50)
[2016-11-21 05:37] VITALS: BP 135/88
[2016-11-21] MEDS: LACTULOSE 20 GM/30 ML SOLUTION. PO SCH ×2 (07:18→20:33)
[2016-11-21] MEDS: MULTIVITAMIN with MINERAL TABLET. PO SCH (07:19)
[2016-11-21] MEDS: amLODIPine BESYLATE 10 MG TABLET PO SCH (07:19)
[2016-11-21] MEDS: FOLIC ACID 1 MG TABLET PO SCH (07:19)
[2016-11-21] MEDS: PANTOPRAZOLE 40 MG TABLET. PO SCH ×2 (07:19→20:33)
[2016-11-21] MEDS: CARVEDILOL 12.5 MG TABLET PO SCH ×2 (07:19→16:15)
[2016-11-21] MEDS: THIAMINE 100 MG TABLET. PO SCH (07:19)
[2016-11-21] MEDS: LISINOPRIL 20 MG TABLET PO SCH ×3 (07:19→20:43)
[2016-11-21] MEDS: QUEtiapine 25 MG TABLET. PO SCH ×2 (07:19→20:32)
[2016-11-21 16:12] VITALS: BP 107/72
--- NOTE | 2016-11-21 19:45 | PDOC ---
Exam Ashvin Demential Exam: Ashvin Note: Please also refer to the separate dictated note~for this date of service dictated separately.~Patient seen individually. Discussed the patient with Nursing staff reviewed the chart.~Reviewed interim history and current functioning. Reviewed vital signs,~Labs/ Radiology~and current medications noted below. Continue current treatment with the changes noted in the dictated addendum note Assessment: Vital Signs: Vital Signs Date Time Temp Pulse Resp B/P (MAP) Pulse Ox O2 Delivery O2 Flow Rate FiO2 11/21/16 16:21 97 Room Air 11/21/16 16:15 72 107/72 11/21/16 16:12 97.7 18 I&O Intake and Output 11/21/16 07:00 Intake Total 1120 ml Balance 1120 ml Intake Oral 1120 ml Current Medications: Meds: Current Medications Acetaminophen (Tylenol) 650 mg PRN Q6HRS PRN PO PAIN / TEMP Last administered on 11/17/16 11:07; Start 11/11/16 at 18:30 Multi-Ingredient Ointment (Analgesic [place]) 1 melani PRN QID PRN TP MUSCLE PAIN Last administered on 11/20/16 13:45; Start 11/11/16 at 18:30 Al Hydroxide/Mg Hydroxide (Mylanta Plus Xs) 15 ml PRN AFTMEALHC PRN PO DYSPEPSIA; Start 11/11/16 at 18:30 Magnesium Hydroxide (Milk Of Magnesia) 2,400 mg PRN QHS PRN PO CONSTIPATION; Start 11/11/16 at 18:30 Albuterol Sulfate (Ventolin Hfa) 2 puff PRN Q4HRS PRN IH FOR ASTHMA; Start 01/18 at 18:45; Stop 11/11/16 at 19:52; Status DC Albuterol Sulfate (Ventolin Hfa) 2 puff Q4HRS IH ; Start 11/11/16 at 20:00; Stop 11/11/16 at 20:00; Status DC Amlodipine Besylate (Norvasc) 10 mg DAILY PO Last administered on 11/21/16 07: 19; Start 11/12/16 at 09:00 Carvedilol (Coreg) 12.5 mg BIDWMEALS PO Last administered on 11/21/16 07:19; Start 11/12/16 at 08:00 Folic Acid (Folic Acid) 1 mg DAILY PO Last administered on 11/21/16 07:19; Start 11/12/16 at 09:00 Ipratropium [place] (Atrovent Hfa) 2 puff QID IH ; Start 11/11/16 at 21:00; Stop 11/11/16 at 21:00; Status DC Pantoprazole Sodium (Protonix) 40 mg BID PO Last administered on 11/21/16 07: 19; Start 11/11/16 at 21:00 Thiamine HCl (Vitamin B-1) 100 mg DAILY PO Last administered on 11/21/16 07:19 ; Start 11/12/16 at 09:00 Lisinopril (Prinivil) 20 mg BID PO Last administered on 11/21/16 07:19; Start 11/11/16 at 21:00 Guaifenesin (Mucinex Er) 1,200 mg Q12HR PO Last administered on 11/21/16 07:21 ; Start 11/11/16 at 21:00 Lactulose 20 gm BID PO Last administered on 11/21/16 07:18; Start 11/11/16 at 21:00 Multivitamins/ Calcium (Thera-M Plus) 1 tab DAILY PO Last administered on 07:19; Start 11/12/16 at 09:00 Divalproex Sodium (Depakote Sprinkles) 500 mg BID PO Last administered on 09:55; Start 11/11/16 at 21:00; Stop 11/16/16 at 18:12; Status DC Divalproex Sodium (Depakote Er) 1,000 mg DAILY PO Last administered on 09:58; Start 11/12/16 at 09:00; Stop 11/16/16 at 18:12; Status DC Ipratropium [place] (Atrovent) 0.5 mg RTQID NEB Last administered on 11/21/16 16:21; Start 11/11/16 at 20:00 Albuterol Sulfate (Ventolin) 2.5 mg PRN Q4HRS PRN NEB SHORTNESS OF BREATH; Start 11/11/16 at 19:45 Quetiapine Fumarate (SEROquel) 12.5 mg DAILY PO Last administered on 8/16/17at 08:04; Start 11/13/16 at 09:00; Stop 11/17/16 at 18:31; Status DC Trazodone HCl (Desyrel) 100 mg QHS PO ; Start 11/13/16 at 21:00; Stop 11/13/16 at 21:00; Status DC Olanzapine (ZyPREXA ZYDIS) 2.5 mg PRN Q2HR PRN PO PSYCHOSIS Last administered on 11/19/16 09:24; Start 11/13/16 at 12:45 Mirtazapine (Remeron) 7.5 mg QHS PO ; Start 11/13/16 at 21:00; Stop 11/13/16 at 21:00; Status DC Trazodone HCl (Desyrel) 500 mg QHS PO Last administered on 11/20/16 20:09; Start 11/13/16 at 21:00 Potassium Chloride (Klor-Con) 40 meq 1X ONCE PO Last administered on 20:06; Start 11/13/16 at 20:00; Stop 11/13/16 at 20:01; Status DC Divalproex Sodium (Depakote Er) 2,000 mg QHS PO Last administered on 11/19/16 19:53; Start 11/17/16 at 21:00; Stop 11/20/16 at 07:25; Status DC Divalproex Sodium (Depakote Er) 2,000 mg QHS PO ; Start 11/16/16 at 21:00; Stop 11/16/16 at 21:00; Status DC Divalproex Sodium (Depakote Sprinkles) 500 mg HS PO Last administered on 21:43; Start 11/16/16 at 21:45; Stop 11/16/16 at 22:20; Status DC Quetiapine Fumarate (SEROquel) 12.5 mg BID PO ; Start 11/17/16 at 21:00; Stop at 21:00; Status DC Quetiapine Fumarate (SEROquel) 12.5 mg BID PO Last administered on 11/21/16 07 :19; Start 11/17/16 at 21:00 Divalproex Sodium (Depakote Er) 1,500 mg QHS PO Last administered on 11/20/16 20:09; Start 11/20/16 at 21:00 Divalproex Sodium (Depakote Er) 250 mg QHS PO Last administered on 11/20/16 20 :09; Start 11/20/16 at 21:00 Active Scripts Active Reported Trazodone Hcl 100 Mg Tablet 1 Tab PO QHS Depakote Sprinkle (Divalproex Sodium) 125 Mg Cap.sprink 500 Mg PO BID Divalproex Sodium Er (Divalproex Sodium) 500 Mg Tab.er.24h 1,000 Mg PO DAILY Thiamine Hcl 100 Mg Tablet 100 Mg PO DAILY Folic Acid 1 Mg Tablet 1 Tab PO DAILY Thera-M (Multivits,Th W-Fe,Other Min) 1 Each Tablet 1 Each PO DAILY Pantoprazole Sodium 40 Mg Tablet.dr 1 Tab PO BID Lactulose 10 Gm/15 Ml Solution 30 Ml PO BID Atrovent Hfa (Ipratropium [place]) 12.9 Gm Hfa.aer.ad 2 Puff IH QID Guaifenesin 1,200 Mg Tab.er.12h 1,200 Mg PO Q12HR Vasotec (Enalapril Maleate) 20 Mg Tablet 10 Mg PO BID Coreg (Carvedilol) 12.5 Mg Tablet 12.5 Mg PO BIDWMEALS Norvasc (Amlodipine Besylate) 10 Mg Tablet 1 Tab PO DAILY Ventolin Hfa Inhaler (Albuterol Sulfate) 18 Gm Hfa.aer.ad 2 Puff IH PRN Q4HRS PRN Ventolin Hfa Inhaler (Albuterol Sulfate) 18 Gm Hfa.aer.ad 2 Puff IH Q4HRS Diagnosis: Problems: (1) Anxiety disorder (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
[2016-11-21] MEDS: traZODone 100 MG TABLET. PO SCH (20:31)
[2016-11-21] MEDS: DIVALPROEX ER 250 MG TAB.ER.24H. PO SCH (20:32)
[2016-11-21] MEDS: DIVALPROEX ER 500 MG TAB.ER.24H PO SCH (20:33)
--- NOTE | 2016-11-21 22:41 | PN ---
DATE: 11/20/2016 PSYCHIATRIC PROGRESS NOTE This is a late entry for 11/20/2016, covers elements not covered in my initial note of 11/20/2016. SUBJECTIVE: I met with the patient the evening of 11/20/2016. Reportedly, the patient has had a good day. His visited him. He has been less dismissive and less irritable. REVIEW OF SYSTEMS: No CV, , pulmonary, eye system symptoms on review. Reliability poor. MENTAL STATUS EXAM: Oriented to himself and situation. Insight, judgment, recent memory is impaired. Language function intact. Attention span short. Mood and affect, lability is improved. LABORATORY DATA: Reviewed. IMPRESSION: Unchanged from initial note. PLAN: Valproic acid level is 109 on Depakote ER 1750 mg at bedtime. It is still appropriate even though it is slightly elevated and we will repeat it in a couple of days. Maintain the rest of the psychotropics unchanged. We reviewed drug interactions, risk/benefit ratio favors no further change. CHALINO GUTIERRES MD DR: JACK/eyal JOB#: [id number] / [id number]
[2016-11-22] MEDS: IPRATROPIUM BROMIDE 0.5 MG/2.5 ML NEBU. NEB SCH ×4 (05:08→20:24)
[2016-11-22 06:04] VITALS: BP 143/81
[2016-11-22] MEDS: CARVEDILOL 12.5 MG TABLET PO SCH ×2 (07:34→17:28)
[2016-11-22] MEDS: PANTOPRAZOLE 40 MG TABLET. PO SCH ×2 (08:25→19:41)
[2016-11-22] MEDS: LACTULOSE 20 GM/30 ML SOLUTION. PO SCH ×2 (08:25→19:41)
[2016-11-22] MEDS: THIAMINE 100 MG TABLET. PO SCH (08:26)
[2016-11-22] MEDS: QUEtiapine 25 MG TABLET. PO SCH ×2 (08:26→19:41)
[2016-11-22] MEDS: FOLIC ACID 1 MG TABLET PO SCH (08:26)
[2016-11-22] MEDS: MULTIVITAMIN with MINERAL TABLET. PO SCH (08:27)
[2016-11-22] MEDS: amLODIPine BESYLATE 10 MG TABLET PO SCH (08:27)
[2016-11-22] MEDS: LISINOPRIL 20 MG TABLET PO SCH ×2 (08:28→19:42)
[2016-11-22 16:00] VITALS: BP 132/78
[2016-11-22] MEDS: DIVALPROEX ER 250 MG TAB.ER.24H. PO SCH (19:41)
[2016-11-22] MEDS: traZODone 100 MG TABLET. PO SCH (19:43)
[2016-11-22] MEDS: DIVALPROEX ER 500 MG TAB.ER.24H PO SCH (19:44)
--- NOTE | 2016-11-22 19:44 | PDOC ---
Exam Ashvin Demential Exam: Ashvin Note: Please also refer to the separate dictated note~for this date of service dictated separately.~Patient seen individually. Discussed the patient with Nursing staff reviewed the chart.~Reviewed interim history and current functioning. Reviewed vital signs,~Labs/ Radiology~and current medications noted below. Continue current treatment with the changes noted in the dictated addendum note Assessment: Vital Signs: Vital Signs Date Time Temp Pulse Resp B/P (MAP) Pulse Ox O2 Delivery O2 Flow Rate FiO2 11/22/16 17:28 79 132/78 11/22/16 16:16 98 Room Air 11/22/16 16:00 98.4 19 I&O Intake and Output 11/22/16 06:59 Intake Total 1800 ml Balance 1800 ml Intake Oral 1800 ml Current Medications: Meds: Current Medications Acetaminophen (Tylenol) 650 mg PRN Q6HRS PRN PO PAIN / TEMP Last administered on 11/17/16 11:07; Start 11/11/16 at 18:30 Multi-Ingredient Ointment (Analgesic [place]) 1 melani PRN QID PRN TP MUSCLE PAIN Last administered on 11/20/16 13:45; Start 11/11/16 at 18:30 Al Hydroxide/Mg Hydroxide (Mylanta Plus Xs) 15 ml PRN AFTMEALHC PRN PO DYSPEPSIA; Start 11/11/16 at 18:30 Magnesium Hydroxide (Milk Of Magnesia) 2,400 mg PRN QHS PRN PO CONSTIPATION; Start 11/11/16 at 18:30 Albuterol Sulfate (Ventolin Hfa) 2 puff PRN Q4HRS PRN IH FOR ASTHMA; Start 01/18 at 18:45; Stop 11/11/16 at 19:52; Status DC Albuterol Sulfate (Ventolin Hfa) 2 puff Q4HRS IH ; Start 11/11/16 at 20:00; Stop 11/11/16 at 20:00; Status DC Amlodipine Besylate (Norvasc) 10 mg DAILY PO Last administered on 11/22/16 08: 27; Start 11/12/16 at 09:00 Carvedilol (Coreg) 12.5 mg BIDWMEALS PO Last administered on 11/22/16 17:28; Start 11/12/16 at 08:00 Folic Acid (Folic Acid) 1 mg DAILY PO Last administered on 11/22/16 08:26; Start 11/12/16 at 09:00 Ipratropium [place] (Atrovent Hfa) 2 puff QID IH ; Start 11/11/16 at 21:00; Stop 11/11/16 at 21:00; Status DC Pantoprazole Sodium (Protonix) 40 mg BID PO Last administered on 11/22/16 08: 25; Start 11/11/16 at 21:00 Thiamine HCl (Vitamin B-1) 100 mg DAILY PO Last administered on 11/22/16 08:26 ; Start 11/12/16 at 09:00 Lisinopril (Prinivil) 20 mg BID PO Last administered on 11/22/16 08:28; Start 11/11/16 at 21:00 Guaifenesin (Mucinex Er) 1,200 mg Q12HR PO Last administered on 11/22/16 08:29 ; Start 11/11/16 at 21:00 Lactulose 20 gm BID PO Last administered on 11/22/16 08:25; Start 11/11/16 at 21:00 Multivitamins/ Calcium (Thera-M Plus) 1 tab DAILY PO Last administered on 08:27; Start 11/12/16 at 09:00 Divalproex Sodium (Depakote Sprinkles) 500 mg BID PO Last administered on 09:55; Start 11/11/16 at 21:00; Stop 11/16/16 at 18:12; Status DC Divalproex Sodium (Depakote Er) 1,000 mg DAILY PO Last administered on 09:58; Start 11/12/16 at 09:00; Stop 11/16/16 at 18:12; Status DC Ipratropium [place] (Atrovent) 0.5 mg RTQID NEB Last administered on 11/22/16 16:15; Start 11/11/16 at 20:00 Albuterol Sulfate (Ventolin) 2.5 mg PRN Q4HRS PRN NEB SHORTNESS OF BREATH; Start 11/11/16 at 19:45 Quetiapine Fumarate (SEROquel) 12.5 mg DAILY PO Last administered on 11/17/16 08:04; Start 11/13/16 at 09:00; Stop 11/17/16 at 18:31; Status DC Trazodone HCl (Desyrel) 100 mg QHS PO ; Start 11/13/16 at 21:00; Stop 11/13/16 at 21:00; Status DC Olanzapine (ZyPREXA ZYDIS) 2.5 mg PRN Q2HR PRN PO PSYCHOSIS Last administered on 11/19/16 09:24; Start 11/13/16 at 12:45 Mirtazapine (Remeron) 7.5 mg QHS PO ; Start 11/13/16 at 21:00; Stop 11/13/16 at 21:00; Status DC Trazodone HCl (Desyrel) 500 mg QHS PO Last administered on 11/21/16 20:31; Start 11/13/16 at 21:00 Potassium Chloride (Klor-Con) 40 meq 1X ONCE PO Last administered on 20:06; Start 11/13/16 at 20:00; Stop 11/13/16 at 20:01; Status DC Divalproex Sodium (Depakote Er) 2,000 mg QHS PO Last administered on 11/19/16 19:53; Start 11/17/16 at 21:00; Stop 11/20/16 at 07:25; Status DC Divalproex Sodium (Depakote Er) 2,000 mg QHS PO ; Start 11/16/16 at 21:00; Stop 11/16/16 at 21:00; Status DC Divalproex Sodium (Depakote Sprinkles) 500 mg HS PO Last administered on 21:43; Start 11/16/16 at 21:45; Stop 11/16/16 at 22:20; Status DC Quetiapine Fumarate (SEROquel) 12.5 mg BID PO ; Start 11/17/16 at 21:00; Stop at 21:00; Status DC Quetiapine Fumarate (SEROquel) 12.5 mg BID PO Last administered on 11/22/16 08 :26; Start 11/17/16 at 21:00 Divalproex Sodium (Depakote Er) 1,500 mg QHS PO Last administered on 11/21/16 20:33; Start 11/20/16 at 21:00 Divalproex Sodium (Depakote Er) 250 mg QHS PO Last administered on 11/21/16t 20 :32; Start 11/20/16 at 21:00 Active Scripts Active Reported Trazodone Hcl 100 Mg Tablet 1 Tab PO QHS Depakote Sprinkle (Divalproex Sodium) 125 Mg Cap.sprink 500 Mg PO BID Divalproex Sodium Er (Divalproex Sodium) 500 Mg Tab.er.24h 1,000 Mg PO DAILY Thiamine Hcl 100 Mg Tablet 100 Mg PO DAILY Folic Acid 1 Mg Tablet 1 Tab PO DAILY Thera-M (Multivits,Th W-Fe,Other Min) 1 Each Tablet 1 Each PO DAILY Pantoprazole Sodium 40 Mg Tablet.dr 1 Tab PO BID Lactulose 10 Gm/15 Ml Solution 30 Ml PO BID Atrovent Hfa (Ipratropium [place]) 12.9 Gm Hfa.aer.ad 2 Puff IH QID Guaifenesin 1,200 Mg Tab.er.12h 1,200 Mg PO Q12HR Vasotec (Enalapril Maleate) 20 Mg Tablet 10 Mg PO BID Coreg (Carvedilol) 12.5 Mg Tablet 12.5 Mg PO BIDWMEALS Norvasc (Amlodipine Besylate) 10 Mg Tablet 1 Tab PO DAILY Ventolin Hfa Inhaler (Albuterol Sulfate) 18 Gm Hfa.aer.ad 2 Puff IH PRN Q4HRS PRN Ventolin Hfa Inhaler (Albuterol Sulfate) 18 Gm Hfa.aer.ad 2 Puff IH Q4HRS Diagnosis: Problems: (1) Anxiety disorder (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
--- NOTE | 2016-11-22 23:57 | PN ---
DATE: 11/21/2016 This late entry 11/21/2016 covers elements not covered in my initial note of 11/21/2016. SUBJECTIVE: The patient was seen individually evening of 11/21/2016. The patient remains somewhat forgetful, but less labile, less agitated per nursing report. REVIEW OF SYSTEMS: No CV, , pulmonary, eye, ENT system symptoms on review. Reliability poor. MENTAL STATUS EXAM: Oriented to himself and situation. Speech has some latency, coherent. Abstraction fair, computation impaired, language function intact. Mood and affect somewhat anxious, but better than before. Memory is impaired. IMPRESSION: Unchanged from initial note. PLAN: Continue current psychotropics, reviewed drug interactions, risk/benefit ratio favors no further change as of now. MAN Ruth GUTIERRES MD DR: JACK/eyal JOB#: [id number] / [id number]
[2016-11-23 05:48] VITALS: BP 104/61
[2016-11-23] MEDS: IPRATROPIUM BROMIDE 0.5 MG/2.5 ML NEBU. NEB SCH ×4 (05:58→20:34)
[2016-11-23 07:53] LABS: ALBUMIN 3.1 g/dL (3.4-5.0); ALBUMIN/GLOBULIN RATIO 0.9 (1.0-1.7); ALK PHOS 53 U/L (46-116); ALT (SGPT) 12 U/L (16-63); ANION GAP 8 (6-14); AST (SGOT) 10 U/L (15-37); BLOOD UREA NITROGEN 17 mg/dL (8-26); BUN/CREATININE RATIO 17 (6-20); CALCIUM 9.3 mg/dL (8.5-10.1); CARBON DIOXIDE 29 mmol/L (21-32); CHLORIDE 109 mmol/L (98-107); GLUCOSE 91 mg/dL (70-99); POTASSIUM 4.3 mmol/L (3.5-5.1); SODIUM 146 mmol/L (136-145); TOTAL BILIRUBIN 0.2 mg/dL (0.2-1.0); TOTAL PROTEIN 6.6 g/dL (6.4-8.2)
[2016-11-23 07:59] LABS: VAL ACID 88 mcg/mL (50-100)
[2016-11-23 08:00] LABS: BASO # 0.1 x10^3/uL (0.0-0.2); BASO % 1 % (0-3); EOS # 0.2 x10^3/uL (0.0-0.7); EOS % 2 % (0-3); HEMATOCRIT 40.5 % (39.0-53.0); HEMOGLOBIN 13.7 g/dL (13.0-17.5); LYMPH # 1.6 x10^3/uL (1.0-4.8); LYMPH % 18 % (24-48); MEAN CORPUSCULAR HEMOGLOBIN 31 pg (25-35); MEAN CORPUSCULAR HGB CONC 34 g/dL (31-37); MEAN CORPUSCULAR VOLUME 91 fL (79-100); MONO # 1.1 x10^3/uL (0.0-1.1); MONO % 12 % (0-9); NEUT # 6.2 x10^3uL (1.8-7.7); NEUT % 68 % (31-73); PLATELET COUNT 252 x10^3/uL (140-400); RED BLOOD COUNT 4.46 x10^6/uL (4.30-5.70); RED CELL DISTRIBUTION WIDTH 14.9 % (11.5-14.5); WHITE BLOOD COUNT 9.1 x10^3/uL (4.0-11.0)
[2016-11-23] MEDS: LISINOPRIL 20 MG TABLET PO SCH ×2 (08:06→19:22)
[2016-11-23] MEDS: MULTIVITAMIN with MINERAL TABLET. PO SCH (08:07)
[2016-11-23] MEDS: amLODIPine BESYLATE 10 MG TABLET PO SCH (08:07)
[2016-11-23] MEDS: FOLIC ACID 1 MG TABLET PO SCH (08:07)
[2016-11-23] MEDS: CARVEDILOL 12.5 MG TABLET PO SCH ×2 (08:07→16:17)
[2016-11-23] MEDS: THIAMINE 100 MG TABLET. PO SCH (08:08)
[2016-11-23] MEDS: QUEtiapine 25 MG TABLET. PO SCH ×2 (08:08→19:22)
[2016-11-23] MEDS: LACTULOSE 20 GM/30 ML SOLUTION. PO SCH ×2 (08:08→19:21)
[2016-11-23] MEDS: PANTOPRAZOLE 40 MG TABLET. PO SCH ×2 (08:11→19:22)
[2016-11-23] MEDS: METHYL SALICYLATE/MENTHOL TOPICAL OINTMENT 29GM TUBE. TP PRN (11:10)
[2016-11-23] MEDS: ACETAMINOPHEN 325 MG TABLET PO PRN (11:10)
[2016-11-23 16:02] VITALS: BP 118/71
--- NOTE | 2016-11-23 18:41 | PDOC ---
Exam Ashvin Demential Exam: Ashvin Note: Please also refer to the separate dictated note~for this date of service dictated separately.~Patient seen individually. Discussed the patient with Nursing staff reviewed the chart.~Reviewed interim history and current functioning. Reviewed vital signs,~Labs/ Radiology~and current medications noted below. Continue current treatment with the changes noted in the dictated addendum note Assessment: Vital Signs: Vital Signs Date Time Temp Pulse Resp B/P (MAP) Pulse Ox O2 Delivery O2 Flow Rate FiO2 11/23/16 16:17 82 118/71 11/23/16 16:02 97.8 18 97 11/23/16 10:41 Room Air I&O Intake and Output 11/23/16 07:00 Intake Total 1020 ml Balance 1020 ml Intake Oral 1020 ml Labs: Laboratory Tests Test 11/23/16 07:32 White Blood Count 9.1 x10^3/uL (4.0-11.0) Red Blood Count 4.46 x10^6/uL (4.30-5.70) Hemoglobin 13.7 g/dL (13.0-17.5) Hematocrit 40.5 % (39.0-53.0) Mean Corpuscular Volume 91 fL (79-100) Mean Corpuscular Hemoglobin 31 pg (25-35) Mean Corpuscular Hemoglobin Concent 34 g/dL (31-37) Red Cell Distribution Width 14.9 % (11.5-14.5) H Platelet Count 252 x10^3/uL (140-400) Neutrophils (%) (Auto) 68 % (31-73) Lymphocytes (%) (Auto) 18 % (24-48) L Monocytes (%) (Auto) 12 % (0-9) H Eosinophils (%) (Auto) 2 % (0-3) Basophils (%) (Auto) 1 % (0-3) Neutrophils # (Auto) 6.2 x10^3uL (1.8-7.7) Lymphocytes # (Auto) 1.6 x10^3/uL (1.0-4.8) Monocytes # (Auto) 1.1 x10^3/uL (0.0-1.1) Eosinophils # (Auto) 0.2 x10^3/uL (0.0-0.7) Basophils # (Auto) 0.1 x10^3/uL (0.0-0.2) Sodium Level 146 mmol/L (136-145) H Potassium Level 4.3 mmol/L (3.5-5.1) Chloride Level 109 mmol/L (98-107) H Carbon Dioxide Level 29 mmol/L (21-32) Anion Gap 8 (6-14) Blood Urea Nitrogen 17 mg/dL (8-26) Creatinine 1.0 mg/dL (0.7-1.3) Estimated GFR (Cockcroft-Gault) 75.0 BUN/Creatinine Ratio 17 (6-20) Glucose Level 91 mg/dL (70-99) Calcium Level 9.3 mg/dL (8.5-10.1) Total Bilirubin 0.2 mg/dL (0.2-1.0) Aspartate Amino Transferase (AST) 10 U/L (15-37) L Alanine Aminotransferase (ALT) 12 U/L (16-63) L Alkaline Phosphatase 53 U/L (46-116) Total Protein 6.6 g/dL (6.4-8.2) Albumin 3.1 g/dL (3.4-5.0) L Albumin/Globulin Ratio 0.9 (1.0-1.7) L Valproic Acid Level 88 mcg/mL (50-100) Valproic Acid Last Dose Date 11/22/2016 Valproic Acid Last Dose Time 2100 Current Medications: Meds: Current Medications Acetaminophen (Tylenol) 650 mg PRN Q6HRS PRN PO PAIN / TEMP Last administered on 11/23/16 11:10; Start 11/11/16 at 18:30 Multi-Ingredient Ointment (Analgesic [place]) 1 melani PRN QID PRN TP MUSCLE PAIN Last administered on 11/23/16 11:10; Start 11/11/16 at 18:30 Al Hydroxide/Mg Hydroxide (Mylanta Plus Xs) 15 ml PRN AFTMEALHC PRN PO DYSPEPSIA; Start 11/11/16 at 18:30 Magnesium Hydroxide (Milk Of Magnesia) 2,400 mg PRN QHS PRN PO CONSTIPATION; Start 11/11/16 at 18:30 Albuterol Sulfate (Ventolin Hfa) 2 puff PRN Q4HRS PRN IH FOR ASTHMA; Start 01/18 at 18:45; Stop 11/11/16 at 19:52; Status DC Albuterol Sulfate (Ventolin Hfa) 2 puff Q4HRS IH ; Start 11/11/16 at 20:00; Stop 11/11/16 at 20:00; Status DC Amlodipine Besylate (Norvasc) 10 mg DAILY PO Last administered on 11/23/16 08: 07; Start 11/12/16 at 09:00 Carvedilol (Coreg) 12.5 mg BIDWMEALS PO Last administered on 11/23/16 16:17; Start 11/12/16 at 08:00 Folic Acid (Folic Acid) 1 mg DAILY PO Last administered on 11/23/16 08:07; Start 11/12/16 at 09:00 Ipratropium [place] (Atrovent Hfa) 2 puff QID IH ; Start 11/11/16 at 21:00; Stop 11/11/16 at 21:00; Status DC Pantoprazole Sodium (Protonix) 40 mg BID PO Last administered on 11/23/16 08: 11; Start 11/11/16 at 21:00 Thiamine HCl (Vitamin B-1) 100 mg DAILY PO Last administered on 11/23/16 08:08 ; Start 11/12/16 at 09:00 Lisinopril (Prinivil) 20 mg BID PO Last administered on 11/23/16 08:06; Start 11/11/16 at 21:00 Guaifenesin (Mucinex Er) 1,200 mg Q12HR PO Last administered on 11/23/16 08:07 ; Start 11/11/16 at 21:00 Lactulose 20 gm BID PO Last administered on 11/23/16 08:08; Start 11/11/16 at 21:00 Multivitamins/ Calcium (Thera-M Plus) 1 tab DAILY PO Last administered on 08:07; Start 11/12/16 at 09:00 Divalproex Sodium (Depakote Sprinkles) 500 mg BID PO Last administered on 09:55; Start 11/11/16 at 21:00; Stop 11/16/16 at 18:12; Status DC Divalproex Sodium (Depakote Er) 1,000 mg DAILY PO Last administered on 09:58; Start 11/12/16 at 09:00; Stop 11/16/16 at 18:12; Status DC Ipratropium [place] (Atrovent) 0.5 mg RTQID NEB Last administered on 11/23/16 16:12; Start 11/11/16 at 20:00 Albuterol Sulfate (Ventolin) 2.5 mg PRN Q4HRS PRN NEB SHORTNESS OF BREATH; Start 11/11/16 at 19:45 Quetiapine Fumarate (SEROquel) 12.5 mg DAILY PO Last administered on 11/17/16 08:04; Start 11/13/16 at 09:00; Stop 11/17/16 at 18:31; Status DC Trazodone HCl (Desyrel) 100 mg QHS PO ; Start 11/13/16 at 21:00; Stop 11/13/16 at 21:00; Status DC Olanzapine (ZyPREXA ZYDIS) 2.5 mg PRN Q2HR PRN PO PSYCHOSIS Last administered on 11/19/16 09:24; Start 11/13/16 at 12:45 Mirtazapine (Remeron) 7.5 mg QHS PO ; Start 11/13/16 at 21:00; Stop 11/13/16 at 21:00; Status DC Trazodone HCl (Desyrel) 500 mg QHS PO Last administered on 11/22/16 19:43; Start 11/13/16 at 21:00 Potassium Chloride (Klor-Con) 40 meq 1X ONCE PO Last administered on 20:06; Start 11/13/16 at 20:00; Stop 11/13/16 at 20:01; Status DC Divalproex Sodium (Depakote Er) 2,000 mg QHS PO Last administered on 11/19/16 19:53; Start 11/17/16 at 21:00; Stop 11/20/16 at 07:25; Status DC Divalproex Sodium (Depakote Er) 2,000 mg QHS PO ; Start 11/16/16 at 21:00; Stop 11/16/16 at 21:00; Status DC Divalproex Sodium (Depakote Sprinkles) 500 mg HS PO Last administered on 21:43; Start 11/16/16 at 21:45; Stop 11/16/16 at 22:20; Status DC Quetiapine Fumarate (SEROquel) 12.5 mg BID PO ; Start 11/17/16 at 21:00; Stop at 21:00; Status DC Quetiapine Fumarate (SEROquel) 12.5 mg BID PO Last administered on 11/23/16 08 :08; Start 11/17/16 at 21:00 Divalproex Sodium (Depakote Er) 1,500 mg QHS PO Last administered on 11/22/16 19:44; Start 11/20/16 at 21:00 Divalproex Sodium (Depakote Er) 250 mg QHS PO Last administered on 11/22/16 19 :41; Start 11/20/16 at 21:00 Active Scripts Active Reported Trazodone Hcl 100 Mg Tablet 1 Tab PO QHS Depakote Sprinkle (Divalproex Sodium) 125 Mg Cap.sprink 500 Mg PO BID Divalproex Sodium Er (Divalproex Sodium) 500 Mg Tab.er.24h 1,000 Mg PO DAILY Thiamine Hcl 100 Mg Tablet 100 Mg PO DAILY Folic Acid 1 Mg Tablet 1 Tab PO DAILY Thera-M (Multivits,Th W-Fe,Other Min) 1 Each Tablet 1 Each PO DAILY Pantoprazole Sodium 40 Mg Tablet.dr 1 Tab PO BID Lactulose 10 Gm/15 Ml Solution 30 Ml PO BID Atrovent Hfa (Ipratropium [place]) 12.9 Gm Hfa.aer.ad 2 Puff IH QID Guaifenesin 1,200 Mg Tab.er.12h 1,200 Mg PO Q12HR Vasotec (Enalapril Maleate) 20 Mg Tablet 10 Mg PO BID Coreg (Carvedilol) 12.5 Mg Tablet 12.5 Mg PO BIDWMEALS Norvasc (Amlodipine Besylate) 10 Mg Tablet 1 Tab PO DAILY Ventolin Hfa Inhaler (Albuterol Sulfate) 18 Gm Hfa.aer.ad 2 Puff IH PRN Q4HRS PRN Ventolin Hfa Inhaler (Albuterol Sulfate) 18 Gm Hfa.aer.ad 2 Puff IH Q4HRS Diagnosis: Problems: (1) Impulse control disorder (2) Dementia, vascular, with depression (3) Dementia, vascular, with delusions (4) Dementia, vascular, with delirium (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
[2016-11-23] MEDS: DIVALPROEX ER 500 MG TAB.ER.24H PO SCH (19:21)
[2016-11-23] MEDS: traZODone 100 MG TABLET. PO SCH (19:22)
[2016-11-23] MEDS: DIVALPROEX ER 250 MG TAB.ER.24H. PO SCH (19:24)
--- NOTE | 2016-11-24 03:09 | PN ---
DATE: 11/22/2016 This late entry 11/22/2016 covers elements not covered in my initial note of 11/22/2016. I met with the patient in the evening of 11/22/2016. Per nursing report, the patient remains somewhat forgetful, sarcastic at times, uses "snarky" comments per nursing report. Otherwise calm, cooperative, improved generally compared to when he was admitted. No CV, , pulmonary, eye, ENT system symptoms on review. MENTAL STATUS EXAM: Oriented to himself and situation. Speech is coherent, abstraction fair, computation impaired, language function intact. Mood and affect showing improvement. LABORATORY DATA: Reviewed. IMPRESSION: Unchanged from initial note. PLAN: Continue current psychotropics, reviewed drug interactions. Risk benefit ratio favors no further change as of now. MAN Ruth GUTIERRES MD DR: JACK/eyal JOB#: [id number] / [id number]
[2016-11-24] MEDS: IPRATROPIUM BROMIDE 0.5 MG/2.5 ML NEBU. NEB SCH ×4 (05:09→20:29)
[2016-11-24 06:21] VITALS: BP 135/86
[2016-11-24] MEDS: MULTIVITAMIN with MINERAL TABLET. PO SCH (08:01)
[2016-11-24] MEDS: PANTOPRAZOLE 40 MG TABLET. PO SCH ×2 (08:02→19:50)
[2016-11-24] MEDS: QUEtiapine 25 MG TABLET. PO SCH ×2 (08:02→19:50)
[2016-11-24] MEDS: CARVEDILOL 12.5 MG TABLET PO SCH ×2 (08:02→15:59)
[2016-11-24] MEDS: FOLIC ACID 1 MG TABLET PO SCH (08:03)
[2016-11-24] MEDS: amLODIPine BESYLATE 10 MG TABLET PO SCH (08:03)
[2016-11-24] MEDS: LISINOPRIL 20 MG TABLET PO SCH ×2 (08:03→19:47)
[2016-11-24] MEDS: THIAMINE 100 MG TABLET. PO SCH (08:03)
[2016-11-24] MEDS: LACTULOSE 20 GM/30 ML SOLUTION. PO SCH ×2 (08:04→19:48)
[2016-11-24 16:22] VITALS: BP 116/72
--- NOTE | 2016-11-24 18:26 | PDOC ---
Exam Ashvin Demential Exam: Ashvin Note: Please also refer to the separate dictated note~for this date of service dictated separately.~Patient seen individually. Discussed the patient with Nursing staff reviewed the chart.~Reviewed interim history and current functioning. Reviewed vital signs,~Labs/ Radiology~and current medications noted below. Continue current treatment with the changes noted in the dictated addendum note Assessment: Vital Signs: Vital Signs Date Time Temp Pulse Resp B/P (MAP) Pulse Ox O2 Delivery O2 Flow Rate FiO2 11/24/16 16:22 99.1 84 18 116/72 (87) 98 11/24/16 15:46 Room Air I&O Intake and Output 11/24/16 07:00 Intake Total 700 ml Balance 700 ml Intake Oral 700 ml # Bowel Movements 1 Current Medications: Meds: Current Medications Acetaminophen (Tylenol) 650 mg PRN Q6HRS PRN PO PAIN / TEMP Last administered on 11/23/16 11:10; Start 11/11/16 at 18:30 Multi-Ingredient Ointment (Analgesic [place]) 1 melani PRN QID PRN TP MUSCLE PAIN Last administered on 11/23/16 11:10; Start 11/11/16 at 18:30 Al Hydroxide/Mg Hydroxide (Mylanta Plus Xs) 15 ml PRN AFTMEALHC PRN PO DYSPEPSIA; Start 11/11/16 at 18:30 Magnesium Hydroxide (Milk Of Magnesia) 2,400 mg PRN QHS PRN PO CONSTIPATION; Start 11/11/16 at 18:30 Albuterol Sulfate (Ventolin Hfa) 2 puff PRN Q4HRS PRN IH FOR ASTHMA; Start 01/18 at 18:45; Stop 11/11/16 at 19:52; Status DC Albuterol Sulfate (Ventolin Hfa) 2 puff Q4HRS IH ; Start 11/11/16 at 20:00; Stop 11/11/16 at 20:00; Status DC Amlodipine Besylate (Norvasc) 10 mg DAILY PO Last administered on 11/24/16 08: 03; Start 11/12/16 at 09:00 Carvedilol (Coreg) 12.5 mg BIDWMEALS PO Last administered on 11/24/16 15:59; Start 11/12/16 at 08:00 Folic Acid (Folic Acid) 1 mg DAILY PO Last administered on 11/24/16 08:03; Start 11/12/16 at 09:00 Ipratropium [place] (Atrovent Hfa) 2 puff QID IH ; Start 11/11/16 at 21:00; Stop 11/11/16 at 21:00; Status DC Pantoprazole Sodium (Protonix) 40 mg BID PO Last administered on 11/24/16 08: 02; Start 11/11/16 at 21:00 Thiamine HCl (Vitamin B-1) 100 mg DAILY PO Last administered on 11/24/16 08:03 ; Start 11/12/16 at 09:00 Lisinopril (Prinivil) 20 mg BID PO Last administered on 11/24/16 08:03; Start 11/11/16 at 21:00 Guaifenesin (Mucinex Er) 1,200 mg Q12HR PO Last administered on 11/24/16 08:03 ; Start 11/11/16 at 21:00 Lactulose 20 gm BID PO Last administered on 11/24/16 08:04; Start 11/11/16 at 21:00 Multivitamins/ Calcium (Thera-M Plus) 1 tab DAILY PO Last administered on 08:01; Start 11/12/16 at 09:00 Divalproex Sodium (Depakote Sprinkles) 500 mg BID PO Last administered on 09:55; Start 11/11/16 at 21:00; Stop 11/16/16 at 18:12; Status DC Divalproex Sodium (Depakote Er) 1,000 mg DAILY PO Last administered on 09:58; Start 11/12/16 at 09:00; Stop 11/16/16 at 18:12; Status DC Ipratropium [place] (Atrovent) 0.5 mg RTQID NEB Last administered on 11/24/16 15:46; Start 11/11/16 at 20:00 Albuterol Sulfate (Ventolin) 2.5 mg PRN Q4HRS PRN NEB SHORTNESS OF BREATH; Start 11/11/16 at 19:45 Quetiapine Fumarate (SEROquel) 12.5 mg DAILY PO Last administered on 11/17/16 08:04; Start 11/13/16 at 09:00; Stop 11/17/16 at 18:31; Status DC Trazodone HCl (Desyrel) 100 mg QHS PO ; Start 11/13/16 at 21:00; Stop 11/13/16 at 21:00; Status DC Olanzapine (ZyPREXA ZYDIS) 2.5 mg PRN Q2HR PRN PO PSYCHOSIS Last administered on 11/19/16 09:24; Start 11/13/16 at 12:45 Mirtazapine (Remeron) 7.5 mg QHS PO ; Start 11/13/16 at 21:00; Stop 11/13/16 at 21:00; Status DC Trazodone HCl (Desyrel) 500 mg QHS PO Last administered on 11/23/16 19:22; Start 11/13/16 at 21:00 Potassium Chloride (Klor-Con) 40 meq 1X ONCE PO Last administered on 20:06; Start 11/13/16 at 20:00; Stop 11/13/16 at 20:01; Status DC Divalproex Sodium (Depakote Er) 2,000 mg QHS PO Last administered on 11/19/16 19:53; Start 11/17/16 at 21:00; Stop 11/20/16 at 07:25; Status DC Divalproex Sodium (Depakote Er) 2,000 mg QHS PO ; Start 11/16/16 at 21:00; Stop 11/16/16 at 21:00; Status DC Divalproex Sodium (Depakote Sprinkles) 500 mg HS PO Last administered on 21:43; Start 11/16/16 at 21:45; Stop 11/16/16 at 22:20; Status DC Quetiapine Fumarate (SEROquel) 12.5 mg BID PO ; Start 11/17/16 at 21:00; Stop at 21:00; Status DC Quetiapine Fumarate (SEROquel) 12.5 mg BID PO Last administered on 11/24/16 08 :02; Start 11/17/16 at 21:00 Divalproex Sodium (Depakote Er) 1,500 mg QHS PO Last administered on 11/23/16 19:21; Start 11/20/16 at 21:00 Divalproex Sodium (Depakote Er) 250 mg QHS PO Last administered on 11/23/16t 19 :24; Start 11/20/16 at 21:00 Active Scripts Active Reported Trazodone Hcl 100 Mg Tablet 1 Tab PO QHS Depakote Sprinkle (Divalproex Sodium) 125 Mg Cap.sprink 500 Mg PO BID Divalproex Sodium Er (Divalproex Sodium) 500 Mg Tab.er.24h 1,000 Mg PO DAILY Thiamine Hcl 100 Mg Tablet 100 Mg PO DAILY Folic Acid 1 Mg Tablet 1 Tab PO DAILY Thera-M (Multivits,Th W-Fe,Other Min) 1 Each Tablet 1 Each PO DAILY Pantoprazole Sodium 40 Mg Tablet.dr 1 Tab PO BID Lactulose 10 Gm/15 Ml Solution 30 Ml PO BID Atrovent Hfa (Ipratropium [place]) 12.9 Gm Hfa.aer.ad 2 Puff IH QID Guaifenesin 1,200 Mg Tab.er.12h 1,200 Mg PO Q12HR Vasotec (Enalapril Maleate) 20 Mg Tablet 10 Mg PO BID Coreg (Carvedilol) 12.5 Mg Tablet 12.5 Mg PO BIDWMEALS Norvasc (Amlodipine Besylate) 10 Mg Tablet 1 Tab PO DAILY Ventolin Hfa Inhaler (Albuterol Sulfate) 18 Gm Hfa.aer.ad 2 Puff IH PRN Q4HRS PRN Ventolin Hfa Inhaler (Albuterol Sulfate) 18 Gm Hfa.aer.ad 2 Puff IH Q4HRS Diagnosis: Problems: (1) Impulse control disorder (2) Dementia, vascular, with depression (3) Dementia, vascular, with delusions (4) Dementia, vascular, with delirium (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
[2016-11-24] MEDS: traZODone 100 MG TABLET. PO SCH (19:47)
[2016-11-24] MEDS: DIVALPROEX ER 500 MG TAB.ER.24H PO SCH (19:49)
[2016-11-24] MEDS: DIVALPROEX ER 250 MG TAB.ER.24H. PO SCH (19:49)
[2016-11-25] MEDS ORDERED: DIVA250T PO (00:16)
[2016-11-25] MEDS ORDERED: ACET325T9 PO (00:19)
[2016-11-25] MEDS ORDERED: MAGN2400 PO (00:32)
[2016-11-25] MEDS ORDERED: MAG30ORA2 PO (00:33)
[2016-11-25] MEDS ORDERED: METH29OI TP (00:35)
[2016-11-25] MEDS ORDERED: OLAN5TAB5 PO (00:38)
[2016-11-25] MEDS ORDERED: QUET25TA5 PO (00:42)
[2016-11-25] MEDS ORDERED: GUAI12003 PO (00:44)
--- NOTE | 2016-11-25 01:55 | PN ---
DATE: 11/23/2016 PSYCHIATRIC PROGRESS NOTE This is a late entry for 11/23/2016, covers elements not covered in my initial note of 11/23/2016. SUBJECTIVE: I met with the patient the evening of 11/23/2016. The patient slept 6-1/2 hours previous evening. Overall, doing a little better, cognitively clearer, spoke with twice during the day and was able to discuss this with me as I met with him the evening of 11/23/2016 and remembered the conversation. He has been interactive in groups. Overall, doing better per nursing report. REVIEW OF SYSTEMS: No CV, , pulmonary, eye, ENT system symptoms on review. Subjectively, he also states he feels "much better" as compared to when he was admitted. MENTAL STATUS EXAM: Oriented to himself and situation. Language function intact. Attention span is improved. Intellect average. Insight improving. No active suicidal or homicidal ideation. No clear psychotic symptoms. He does have cognitive deficits, short term memory deficits. LABORATORY DATA: Reviewed. IMPRESSION: Unchanged from initial note. PLAN: Continue current psychotropics. Reviewed drug interactions. Risk/benefit ratio favors no further change as of now. MAN Ruth GUTIERRES MD DR: JACK/eyal JOB#: [id number] / [id number]
[2016-11-25] MEDS: IPRATROPIUM BROMIDE 0.5 MG/2.5 ML NEBU. NEB SCH ×3 (05:10→16:01)
[2016-11-25 06:11] VITALS: BP 127/86
[2016-11-25] MEDS: LACTULOSE 20 GM/30 ML SOLUTION. PO SCH (09:17)
[2016-11-25] MEDS: FOLIC ACID 1 MG TABLET PO SCH (09:17)
[2016-11-25] MEDS: LISINOPRIL 20 MG TABLET PO SCH (09:18)
[2016-11-25] MEDS: CARVEDILOL 12.5 MG TABLET PO SCH ×2 (09:18→16:53)
[2016-11-25] MEDS: PANTOPRAZOLE 40 MG TABLET. PO SCH (09:18)
[2016-11-25] MEDS: MULTIVITAMIN with MINERAL TABLET. PO SCH (09:18)
[2016-11-25] MEDS: THIAMINE 100 MG TABLET. PO SCH (09:18)
[2016-11-25] MEDS: QUEtiapine 25 MG TABLET. PO SCH (09:18)
[2016-11-25] MEDS: amLODIPine BESYLATE 10 MG TABLET PO SCH (09:19)
[2016-11-25] MEDS: METHYL SALICYLATE/MENTHOL TOPICAL OINTMENT 29GM TUBE. TP PRN (11:04)
[2016-11-25 16:08] VITALS: BP 117/74
[2016-11-25 16:53] VITALS: BP 117/74
--- NOTE | 2016-11-25 18:11 | PDOC ---
Exam Ashvin Demential Exam: Ashvin Note: Please also refer to the separate dictated note~for this date of service dictated separately.~Patient seen individually. Discussed the patient with Nursing staff reviewed the chart.~Reviewed interim history and current functioning. Reviewed vital signs,~Labs/ Radiology~and current medications noted below. Continue current treatment with the changes noted in the dictated addendum note Assessment: Vital Signs: Vital Signs Date Time Temp Pulse Resp B/P (MAP) Pulse Ox O2 Delivery O2 Flow Rate FiO2 11/25/16 16:53 83 117/74 11/25/16 16:08 98.5 20 96 11/25/16 16:03 Room Air I&O Intake and Output 11/25/16 07:00 Intake Total 1180 ml Balance 1180 ml Intake Oral 1180 ml Current Medications: Meds: Current Medications Acetaminophen (Tylenol) 650 mg PRN Q6HRS PRN PO PAIN / TEMP Last administered on 11/23/16 11:10; Start 11/11/16 at 18:30 Multi-Ingredient Ointment (Analgesic [place]) 1 melani PRN QID PRN TP MUSCLE PAIN Last administered on 11/25/16 11:04; Start 11/11/16 at 18:30 Al Hydroxide/Mg Hydroxide (Mylanta Plus Xs) 15 ml PRN AFTMEALHC PRN PO DYSPEPSIA; Start 11/11/16 at 18:30 Magnesium Hydroxide (Milk Of Magnesia) 2,400 mg PRN QHS PRN PO CONSTIPATION; Start 11/11/16 at 18:30 Albuterol Sulfate (Ventolin Hfa) 2 puff PRN Q4HRS PRN IH FOR ASTHMA; Start 01/18 at 18:45; Stop 11/11/16 at 19:52; Status DC Albuterol Sulfate (Ventolin Hfa) 2 puff Q4HRS IH ; Start 11/11/16 at 20:00; Stop 11/11/16 at 20:00; Status DC Amlodipine Besylate (Norvasc) 10 mg DAILY PO Last administered on 11/25/16 09: 19; Start 11/12/16 at 09:00 Carvedilol (Coreg) 12.5 mg BIDWMEALS PO Last administered on 11/25/16 16:53; Start 11/12/16 at 08:00 Folic Acid (Folic Acid) 1 mg DAILY PO Last administered on 11/25/16 09:17; Start 11/12/16 at 09:00 Ipratropium [place] (Atrovent Hfa) 2 puff QID IH ; Start 11/11/16 at 21:00; Stop 11/11/16 at 21:00; Status DC Pantoprazole Sodium (Protonix) 40 mg BID PO Last administered on 11/25/16 09: 18; Start 11/11/16 at 21:00 Thiamine HCl (Vitamin B-1) 100 mg DAILY PO Last administered on 11/25/16 09:18 ; Start 11/12/16 at 09:00 Lisinopril (Prinivil) 20 mg BID PO Last administered on 11/25/16 09:18; Start 11/11/16 at 21:00 Guaifenesin (Mucinex Er) 1,200 mg Q12HR PO Last administered on 11/25/16 09:17 ; Start 11/11/16 at 21:00 Lactulose 20 gm BID PO Last administered on 11/25/16 09:17; Start 11/11/16 at 21:00 Multivitamins/ Calcium (Thera-M Plus) 1 tab DAILY PO Last administered on 09:18; Start 11/12/16 at 09:00 Divalproex Sodium (Depakote Sprinkles) 500 mg BID PO Last administered on 09:55; Start 11/11/16 at 21:00; Stop 11/16/16 at 18:12; Status DC Divalproex Sodium (Depakote Er) 1,000 mg DAILY PO Last administered on 09:58; Start 11/12/16 at 09:00; Stop 11/16/16 at 18:12; Status DC Ipratropium [place] (Atrovent) 0.5 mg RTQID NEB Last administered on 11/25/16 16:01; Start 11/11/16 at 20:00 Albuterol Sulfate (Ventolin) 2.5 mg PRN Q4HRS PRN NEB SHORTNESS OF BREATH; Start 11/11/16 at 19:45 Quetiapine Fumarate (SEROquel) 12.5 mg DAILY PO Last administered on 11/17/16 08:04; Start 11/13/16 at 09:00; Stop 11/17/16 at 18:31; Status DC Trazodone HCl (Desyrel) 100 mg QHS PO ; Start 11/13/16 at 21:00; Stop 11/13/16 at 21:00; Status DC Olanzapine (ZyPREXA ZYDIS) 2.5 mg PRN Q2HR PRN PO PSYCHOSIS Last administered on 11/19/16 09:24; Start 11/13/16 at 12:45 Mirtazapine (Remeron) 7.5 mg QHS PO ; Start 11/13/16 at 21:00; Stop 11/13/16 at 21:00; Status DC Trazodone HCl (Desyrel) 500 mg QHS PO Last administered on 11/24/16 19:47; Start 11/13/16 at 21:00 Potassium Chloride (Klor-Con) 40 meq 1X ONCE PO Last administered on 20:06; Start 11/13/16 at 20:00; Stop 11/13/16 at 20:01; Status DC Divalproex Sodium (Depakote Er) 2,000 mg QHS PO Last administered on 11/19/16 19:53; Start 11/17/16 at 21:00; Stop 11/20/16 at 07:25; Status DC Divalproex Sodium (Depakote Er) 2,000 mg QHS PO ; Start 11/16/16 at 21:00; Stop 11/16/16 at 21:00; Status DC Divalproex Sodium (Depakote Sprinkles) 500 mg HS PO Last administered on 21:43; Start 11/16/16 at 21:45; Stop 11/16/16 at 22:20; Status DC Quetiapine Fumarate (SEROquel) 12.5 mg BID PO ; Start 11/17/16 at 21:00; Stop at 21:00; Status DC Quetiapine Fumarate (SEROquel) 12.5 mg BID PO Last administered on 11/25/16 09 :18; Start 11/17/16 at 21:00 Divalproex Sodium (Depakote Er) 1,500 mg QHS PO Last administered on 11/24/16 19:49; Start 11/20/16 at 21:00 Divalproex Sodium (Depakote Er) 250 mg QHS PO Last administered on 11/24/16 19 :49; Start 11/20/16 at 21:00 Active Scripts Active Reported Mucinex (Guaifenesin) 1,200 Mg Tbmp.12hr 1,200 Mg PO Q12HR Seroquel (Quetiapine Fumarate) 25 Mg Tablet 12.5 Mg PO BID Zyprexa Zydis (Olanzapine) 5 Mg Tab.rapdis 2.5 Mg PO PRN Q2HR PRN Tylenol (Acetaminophen) 325 Mg Tablet 650 Mg PO PRN Q6HRS PRN Depakote Er (Divalproex Sodium) 250 Mg Tab.er.24h 250 Mg PO QHS Trazodone Hcl 100 Mg Tablet 500 Mg PO QHS Divalproex Sodium Er (Divalproex Sodium) 500 Mg Tab.er.24h 1,500 Mg PO QHS Thiamine Hcl 100 Mg Tablet 100 Mg PO DAILY Folic Acid 1 Mg Tablet 1 Mg PO DAILY Thera-M (Multivits, W-Fe,Other Min) 1 Each Tablet 1 Tab PO DAILY Pantoprazole Sodium 40 Mg Tablet.dr 40 Mg PO BID Lactulose 10 Gm/15 Ml Solution 20 Gm PO BID Atrovent Hfa (Ipratropium [place]) 12.9 Gm Hfa.aer.ad 2 Puff IH QID Vasotec (Enalapril Maleate) 20 Mg Tablet 10 Mg PO BID Coreg (Carvedilol) 12.5 Mg Tablet 12.5 Mg PO BIDWMEALS Norvasc (Amlodipine Besylate) 10 Mg Tablet 10 Mg PO DAILY Ventolin Hfa Inhaler (Albuterol Sulfate) 18 Gm Hfa.aer.ad 2 Puff IH PRN Q4HRS PRN Diagnosis: Problems: (1) Impulse control disorder (2) Dementia, vascular, with depression (3) Dementia, vascular, with delusions (4) Dementia, vascular, with delirium (5) Hypertension (6) Dementia associated with alcoholism with behavioral disturbance (7) Anxiety disorder CHALINO GUTIERRES MD Nov 25, 2016 18:11
--- NOTE | 2016-11-26 00:17 | DS ---
DATE OF DISCHARGE: 11/25/2016 DISCHARGE SUMMARY AND PSYCHIATRIC PROGRESS NOTE REASON FOR ADMISSION: Please refer to the admission history for details. Briefly, the patient is a 65-year-old male, referred to us from [facility] by his primary care physician after the patient had been stabilized for alcohol withdrawal, delirium, but was still confused, agitated, disorganized, deemed a potential danger if he were he to return home at that stage and referred for inpatient psychiatric stabilization. SIGNIFICANT FINDINGS AND CLINICAL COURSE: Following admission, the patient was seen daily individually by myself, followed medically per Dr. Joe/Dr. Kirkland. The patient had difficulty ambulating at admission, was oriented just to himself. His psychotropics were stabilized and he seemed to respond to a combination of Depakote ER 1750 mg at bedtime, Seroquel 12.5 mg b.i.d., trazodone was continued at 500 mg at bedtime since the was very keen on not to change this dosage at all. He is also on Zyprexa p.r.n. CONDITION AT DISCHARGE: Improved. He was reasonably oriented at discharge, able to ambulate himself. No psychotic symptoms noted. Mood appeared euthymic. 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 Rest unchanged from admission. DISCHARGE MEDICATIONS: Please refer to the MRAD. DISCHARGE INSTRUCTIONS: Outpatient psychiatric and medical followup as arranged by social service staff prior to discharge. Time for discharge day management is greater than 30 minutes. MAN Ruth GUTIERRES MD DR: JACK/eyal JOB#: [id number] / [id number]
--- NOTE | 2016-11-26 00:17 | PN ---
DATE: 11/24/2016 This late entry for 11/24/2016 covers elements not covered in my initial note of 11/24/2016. SUBJECTIVE: I met with the patient in the evening of 11/24/2016. Per nursing report, the patient has been cooperative, friendly, more interactive. He was tired after he walks with physical therapy staff. REVIEW OF SYSTEMS: No CV, , pulmonary, eye, ENT system symptoms on review. Reliability is improving. MENTAL STATUS EXAM: Oriented to himself and situation. Speech is coherent, more forthcoming verbal, abstraction fair, computation impaired, language function intact, attention span short. Mood and affect improved. LABORATORY DATA: Reviewed. IMPRESSION: Unchanged from initial note. PLAN: Continue psychotropics mentioned in my initial note. Possible transition home in the next day or so. MAN Ruth GUTIERRES MD DR: JACK/eyal JOB#: [id number] / [id number]
== END 2016-11-25 20:23 | disposition home or self-care (01) | DRG 896 ==
LOC: GEROPSY 17:37
PROVIDERS: ADMIT Psychiatry & Neurology Psychiatry; ATTEND Psychiatry & Neurology Psychiatry
DX: F10.27 Alcohol dependence with alcohol-induced persisting dementia (principal); G93.40 Encephalopathy, unspecified; F10.231 Alcohol dependence with withdrawal delirium; F01.51 Vascular dementia, unspecified severity, with behavioral disturbance; F31.60 Bipolar disorder, current episode mixed, unspecified; F05 Delirium due to known physiological condition; J44.9 Chronic obstructive pulmonary disease, unspecified; I10 Essential (primary) hypertension; E78.5 Hyperlipidemia, unspecified; M19.90 Unspecified osteoarthritis, unspecified site; F41.9 Anxiety disorder, unspecified; K21.9 Gastro-esophageal reflux disease without esophagitis; G40.909 Epilepsy, unspecified, not intractable, without status epilepticus; K59.09 Other constipation; F63.9 Impulse disorder, unspecified; F17.210 Nicotine dependence, cigarettes, uncomplicated; R90.82 White matter disease, unspecified; R63.4 Abnormal weight loss; Z90.49 Acquired absence of other specified parts of digestive tract; Z90.89 Acquired absence of other organs; Z88.8 Allergy status to other drugs, medicaments and biological substances; Z79.899 Other long term (current) drug therapy
CPT/HCPCS: 36415; 71010; 80053; 80061; 80164; 81001; 82306; 82607; 83036; 83540; 83550; 83735; 84436; 84443; 84480; 85025; 85027; 86592; 86593; 93005; 94640; 95816; J7644; 97110; 97116; 97530; 97535